=== PATIENT | female | born 1985 | race Caucasian/White ===

== ENCOUNTER → 2016-12-01 | Outpatient (CLI) | payer OTHER ==
[~2016-12-01] MED LIST: CLIN-62 PO; HYDR-3812 PO; IBP600T1 PO; IBUP-1773 PO; OXYC-12 PO; PREN-115 PO; PREN1TAB71 PO; SERT50TA2 PO; [UNRECOGNIZED DRUG - OTHER]
--- NOTE | 2016-12-01 17:12 | Diagnostic Imaging Report ---
PROCEDURE: US OB SINGLE FETUS <14 WKS. TECHNIQUE: Multiple real-time grayscale images were obtained over the gravid uterus in various projections. INDICATION: OB ultrasound for dates. FINDINGS: There is single live intrauterine fetus present. Placenta is developing anteriorly. Placenta does extend into the lower uterine segment and at least appears to represent marginal previa at this time. heart rate of 149 beats per minute. biometric measurements are BPD 2.67 cm, head circumference 9.88 cm, abdominal circumference 8.16 cm, femur length 1.36 cm with estimated weight of 95 g. IMPRESSION: 1. A 14 weeks 4 days live intrauterine by ultrasound. Sonographic EDC of 05/28/2017. 2. Anterior placenta is present which is extending into the lower uterine segment at this time. Followup is indicated. Dictated by: Dictated on workstation # [id number]
== END ==
LOC: RAD 13:51
PROVIDERS: ATTEND Family Medicine
DX: Z34.82 Encounter for supervision of other normal pregnancy, second trimester (principal)
CPT/HCPCS: 76801

== ENCOUNTER → 2017-02-12 | Outpatient (CLI) | payer OTHER ==
[~2017-02-12] MED LIST changes: +FERR-74 PO
--- NOTE | 2017-02-12 12:39 | Diagnostic Imaging Report ---
INDICATION: anatomical survey. TECHNIQUE: Multiple real-time grayscale images were obtained over the gravid uterus. COMPARISON: 12/01/2016. FINDINGS: Transabdominal sonographic evaluation of the gravid uterus was performed. The cervix is closed and measures 5.4 cm. Single live intrauterine at 24 weeks 4 days by today's sonographic measurements. Appropriate interval growth. EDC by the first ultrasound is 05/28/2017. EDC by today's ultrasound is 05/31/2017. heart rate measures 132 beats per minute. presentation is breech. Normal amniotic fluid index. Grade 2 placenta is located anteriorly with no placenta previa. There is good visualization of the kidneys, stomach, bladder, brain, three-vessel cord and insertion, spine, and extremities. The four-chamber heart was not well visualized due to positioning. Recommend short-term sonographic followup. Biometrical measurements are as follows: Biparietal 5.85 cm, age 24 weeks 0 days. Head circumference 22.3 cm, age 24 weeks 3 days. Abdominal circumference 19.63 cm, age 24 weeks 3 days. Femur length 4.55 cm, age 25 weeks 1 days. Sonographic estimate age: 24 weeks 4 days. Sonographic estimated date of delivery: 05/31/2017. Estimated Weight: 711 gm (+/- 104 gm). LMP percentile: 23%. heart rate: 132 beats per minute. number: 1 of 1. IMPRESSION: 1. Single live intrauterine at 24 weeks 4 days by today's sonographic measurements. 2. Poor visualization of the four-chamber heart due to positioning. Recommend short-term sonographic followup. The remainder of the anatomical survey appears within normal limits. Dictated by: Dictated on workstation # [id number]
== END ==
LOC: RAD 11:01
PROVIDERS: ATTEND Family Medicine
DX: Z36 Encounter for antenatal screening of mother (principal); Z3A.24 24 weeks gestation of pregnancy
CPT/HCPCS: 76805

== ENCOUNTER → 2017-03-08 | Outpatient (CLI) | payer OTHER ==
--- NOTE | 2017-03-08 17:32 | Diagnostic Imaging Report ---
INDICATION: Follow-up exam. TECHNIQUE: Multiple real-time grayscale images were obtained over the gravid uterus. COMPARISON: 12/01/2016 and 02/12/2017. FINDINGS: The previous OB ultrasound exam of 02/12/2017 noted a single live fetus of approximately 24 weeks 4 days gestation +/- 1 week. There were no abnormalities identified, but the four-chamber heart view was less than optimal. On this study, the fetus is again identified. The fetus is cephalic in presentation. heart motion is noted with a rate of 149 bpm recorded. The four-chamber heart view is better visualized on this study and appears to be within normal limits. The placenta is anterior and there is no previa. The amniotic fluid volume is within normal limits. The cervix is identified and measures 4.1 cm in length. The growth parameters are not obtained for this study. IMPRESSION: 1. There is a single live fetus of approximately 28 weeks 3 days gestation +/- 1 week. The EDC remains May 28, 2017. 2. The four-chamber heart view is within normal limits. 3. The growth parameters were not obtained for this study. Dictated by: Dictated on workstation # [id number]
== END ==
LOC: RAD 10:20
PROVIDERS: ATTEND Family Medicine
DX: Z36 Encounter for antenatal screening of mother (principal); Z3A.00 Weeks of gestation of pregnancy not specified
CPT/HCPCS: 76816

== ENCOUNTER 2017-05-28 14:07 | Inpatient (IN) | payer OTHER ==
[~2017-05-28] VITALS: Ht 160 cm; Wt 68.3 kg
[2017-05-28] VITALS (11 sets, daily range): BP systolic 111–129; BP diastolic 63–80
[~2017-05-28 14:07] MED LIST changes: -FERR-74 PO
[2017-05-28] MEDS ORDERED: D5 LR IV SOLUTION 1,000 ML IV ONE (14:23)
[2017-05-28] MEDS ORDERED: OXYTOCIN/NORMAL SALINE 500 ML IV ONE (14:44)
[2017-05-28] MEDS ORDERED: LIDOCAINE/EPI 2% 1:200,00 (XYLOCAINE) 10 ML VIAL ONE (14:44)
[2017-05-28] MEDS ORDERED: MINERAL OIL CONCENTRATE 99.9% 15 ML UDC ONE (14:44)
[2017-05-28] MEDS ORDERED: D5 LR IV SOLUTION 1,000 ML IV SCH (15:33)
[2017-05-28 15:40] LABS: BASOPHILS % (AUTO) 0 % (0-10); EOSINOPHILS % (AUTO) 0 % (0-10); LYMPHOCYTES # (AUTO) 1.4 X 10^3 (1.0-4.0); LYMPHOCYTES % (AUTO) 12 % (12-44); MEAN CORPUSCULAR HEMOGLOBIN 24 PG (25-34); MEAN CORPUSCULAR HGB CONC 32 G/DL (32-36); MEAN CORPUSCULAR VOLUME 75 FL (80-99); MEAN PLATELET VOLUME 11.6 FL (7.4-10.4); MONOCYTES # (AUTO) 0.6 X 10^3 (0.0-1.0); MONOCYTES % (AUTO) 5 % (0-12); NEUTROPHILS # (AUTO) 9.2 X 10^3 (1.8-7.8); NEUTROPHILS % (AUTO) 82 % (42-75); PLATELET COUNT 271 10^3/uL (130-400); RED BLOOD COUNT 4.41 10^6/uL (4.35-5.85); RED CELL DISTRIBUTION WIDTH 15.9 % (10.0-14.5); WHITE BLOOD COUNT 11.2 10^3/uL (4.3-11.0)
--- NOTE | 2017-05-28 15:41 | History & Physical-OB ---
OB - Chief Complaint & HPI Date/Time Date of Admission: Date of Admission: May 28, 2017 at 2:57 pm Time Seen by Provider: 14:45 Chief Complaint/History OB-Reason for Admission/Chief: Onset of Labor Hx : 3 Hx Para: 2001 Expected Date of Delivery: May 31, 2017 Gestational Age in Weeks: 39 Gestational Age in Days: 4 History of Labs A+, antibody neg, RI. HepB/RPR/HIV neg. GC/chlamydia neg. 1 hour glucola normal. GBS negative. Allergies and Home Medications Allergies Coded Allergies: No Known Drug Allergies (Unverified , 10/29/11) Home Medications Hydrocodone/Acetaminophen 1 Each Tablet, 1 TAB PO Q4H PRN for PAIN, #30 Ref 0 Prescribed by: SEBASTIAN SOLIZ on 08/12/15 0908 Ibuprofen 600 Mg Tablet, 600 MG PO Q6H PRN for PAIN, #60 Ref 0 Prescribed by: SEBASTIAN SOLIZ on 08/12/15 0908 Vit/Iron Fumarate/FA 1 Each Tablet, 1 EACH PO DAILY, (Reported) Sertraline HCl 50 Mg Tablet, 50 MG PO DAILY, (Reported) OB - History Hx of Present Care: Yes Ultrasounds: Abnormal US findings (initial US with marginal placneta previa, resolved at follow up exam) Obstetrical Complications: Other (anemia on iron BID, proteinuria with no hypertension) Medical Complications: Psychiatric (depression, prescribed sertraline, does not take regularly) Information Induced Hypertension: No Maternal Gestational Diabetes: No Hemorrhage: No Obstetrical History Hx : 3 Hx Para: 2 Hx # Term Pregnancies: 2 Hx # Pregnancies: 0 Number of Living Children: 2 Hx Termination: No Hx Multiple Gestation: No Hx Ectopic : No Hx Stillbirth: No Hx Complication: No Hx Induced Hypertens: No Hx Maternal Gestational Diabet: No Hx Hemorrhage: No Delivery History Hx Dystocia: No Hx Forceps Assisted Delivery: No Hx Vacuum Extraction Assisted: No Hx Placenta Abnormality: No Hx Distress: No Hx Large For Gestational Age I: No Hx Small for Gestational Age I: No Hx Section: No Hx Vaginal Delivery Post C-Sec: No Hx Blood Disorders: No Adverse Rxn to Tranfusion: No Patient Past Medical History PMHx: Major depressive disorder Social History/Family History HIV/AIDS: No Sexually Transmitted Disease: No Alcohol Use: Denies Use Recreational Drug Use: No Smoking Cessation: Never smoker Immunizations Tetanus Booster (TDap): Less than 5yrs (04/18/2017) Date of Influenza Vaccine: Apr 18, 2017 Rubella: immune RPR/VDRL: Negative GBS Status: Negative HBsAG: Negative OB - Admission Exam Physical Exam HEENT: NCAT Abdomen: Gravid Extremities: Edema (mild) Cervical Dilatation: 8cm Effacement: 100% Station: -3 Membranes: Intact Heart Rate: 130's Decelerations: No Decelerations Short Term Variability: Present [employer] Sales Representative Variability: Average (6-25) Contractions on Admission: < 5 Minutes Apart OB - Assessment/Plan/Diagnosis Assessment Assessment: active labor Plan Plan: Expectant Management Copy Copies To 1: SEBASTIAN SOLIZ MD, BETHANY N MD May 28, 2017 3:41 pm
--- NOTE | 2017-05-28 15:44 | OB Labor & Delivery Record ---
Vag Delivery Note Vag Delivery Note Date of Delivery: 05/28/17 Preoperative Diagnosis: Jeni Acharya is a 31 /Para 3 now P3 at 39w4d Postoperative Diagnosis: Same Surgeon: SEBASTIAN SOLIZ Anesthesia: None Delivery Type: spontaneous vaginal delivery Findings: Viable femal , apgars 9/9, weight 8#4 Lacerations: none Intact placenta with 3 vessel cord. No nuchal cord, body cord or shoulder dystocia Estimated Blood Loss: 300 ml Complications: None Condition: Stable Description of Procedure: The patient is a 31 yo G3 now P3 who presented at 8 cm dilation with bulging back, cervix complete nearly immediately after ROM. She was admitted and informed consent was obtained. Her labor course was remarkable for rapid course. She progressed to complete dilatation and began to push. She was then set up for delivery. The infant's head was delivered atraumatically in the occiput anterior position. The shoulders and remainder of the infant's body were then delivered without difficulty. Upon delivery, the was vigorous and placed on maternal abdomen. After a delay, the cord was doubly clamped and cut and the infant was placed skin to skin with mother. An intact placenta with 3-vessel cord delivered via [place] and there was found to be minimal bleeding.~ Vigorous fundal massage was performed and the fundus was found to be firm. IV oxytocin was given. Examination of the vagina and perineum revealed no lacerations. Following the repair, sponge, instrument and needle counts were correct. Mom and baby were both in stable condition in the labor suite. Vitals - Labs Labs Laboratory Tests 05/28/17 14:45: White Blood Count 11.2H, Red Blood Count 4.41, Hemoglobin 10.4L, Hematocrit 33L , Mean Corpuscular Volume 75L, Mean Corpuscular Hemoglobin 24L, Mean Corpuscular Hemoglobin Concent 32, Red Cell Distribution Width 15.9H, Platelet Count 271, Mean Platelet Volume 11.6H, Neutrophils (%) (Auto) 82H, Lymphocytes ( %) (Auto) 12, Monocytes (%) (Auto) 5, Eosinophils (%) (Auto) 0, Basophils (%) ( Auto) 0, Neutrophils # (Auto) 9.2H, Lymphocytes # (Auto) 1.4, Monocytes # (Auto ) 0.6, Eosinophils # (Auto) 0.0, Basophils # (Auto) 0.0 SEBASTIAN SOLIZ MD May 28, 2017 15:43
--- OUTSIDE RECORDS SUMMARY | 2017-05-28 17:36 | XMS REPORT ---
Author Author BOB CHAUDHARY Organization [employer] Address Unknown Phone Unavailable Care Team Providers Care Child Care Education Coordinator Name Role Phone BOB CHAUDHARY CP Unavailable Allergies No Known Allergies Problems Problem Type Condition ICD-9 Code Onset Dates Condition Status Problem Supervision of normal subsequent V22.1 Active Assessment Major depression, recurrent 296.30 Active Problem Depression affecting , antepartum 648.43 Active Assessment Social anxiety disorder 300.23 Active Assessment No condition on [place] II V71.09 Active Medications No Known Medications Procedures Procedure Coding System Code Date Psychotherapy, patient &/family, with E&M, 45 minutes, established patient CPT -4 91325 Mar 24, 2015 Results No Known Results Summary Purpose [employer] Submission
--- OUTSIDE RECORDS SUMMARY | 2017-05-28 17:37 | XMS REPORT ---
Author Author SEBASTIAN SOLIZ [employer] Address Unknown Phone Unavailable Care Team Providers Care Instructor Physical Name Role Phone SEBASTIAN SOLIZ Unavailable Allergies No Known Allergies Problems Problem Type Condition Code Onset Dates Condition Status Problem Depression during in third trimester O99.343 Active Assessment screening for streptococcus B Z36 Active Problem Supervision of normal , third trimester Z34.93 Active Assessment 36 weeks gestation of Z3A.36 Active Medications No Known Medications Procedures Procedure Coding System Code Date DETECT AGNT MULT, DNA, AMPLI CPT-4 68200 Jul 13, 2015 Office Visit, Est Pt., Level 2 CPT-4 68243 Jul 13, 2015 URINE-NO MICRO CPT-4 49970 Jul 13, 2015 Vital Signs Date/Time: Jul 13, 2015 Temperature 97.8 F Weight 150.9 lbs Height 64 in BMI 25.902 Index Blood Pressure Diastolic 70 mmHg Blood Pressure Systolic 115 mmHg Cardiac Monitoring Heart Rate 82 bpm Results Name Result Date Reference Range Unit Abnormality Flag CULTURE, GROUP B STREP (VAGINAL) ----Strep Gp B Culture Negative [id number] Negative Summary Purpose [employer] Submission
--- OUTSIDE RECORDS SUMMARY | 2017-05-28 17:37 | XMS REPORT ---
Author SEBASTIAN Rodriguez [facility] e[employer] Address Unknown Phone Unavailable Care Team Providers Care Research Program Coordinator Name Role Phone SEBASTIAN SOLIZ CP Unavailable Allergies, Adverse Reactions, Alerts Substance Reaction Event Type N.K.D.A. Info Not Available Non Drug Allergy Problems Problem Type Condition Code Onset Dates Condition Status Problem Depression during in third trimester O99.343 Active Assessment Supervision of normal , third trimester Z34.93 Active Problem Supervision of normal , third trimester Z34.93 Active Assessment 30 weeks gestation of Z3A.30 Active Assessment Encounter for immunization Z23 Active Assessment Depression during in third trimester O99.343 Active Medications Medication Code System Code Instructions Start Date End Date Status Dosage Zoloft [facility] [address]-06 50 mg Orally Once a day February 09, 2015 1 tablet Procedures Procedure Coding System Code Date Office Visit, Est Pt., Level 2 CPT-4 90025 Jun 02, 2015 COMPLETE CBC W/AUTO DIFF WBC CPT-4 66600 Jun 02, 2015 URINE-NO MICRO CPT-4 97618 Jun 02, 2015 VENIPUNCT, ROUTINE* CPT-4 42398 Jun 02, 2015 IMMUNIZATION ADMIN, EACH ADD (please include units) CPT-4 60026 Jun 02, 2015 FLUARIX QUAD (3 & UP)-GSK-2014 CPT-4 42271 Jun 02, 2015 GLUCOSE TEST CPT-4 14760 Jun 02, 2015 SINGLE IMMUNIZATION ADMIN CPT-4 84813 Jun 02, 2015 TDAP (BOOSTRIX) CPT-4 15737 Jun 02, 2015 Vital Signs Date/Time: Jun 02, 2015 Temperature 97.9 F Weight 142.7 lbs Height 64 in BMI 24.494 Index Blood Pressure Diastolic 70 mmHg Blood Pressure Systolic 106 mmHg Cardiac Monitoring Heart Rate 80 bpm Results Name Result Date Reference Range Unit Abnormality Flag UA OB DIP (IN HOUSE) GLUCOSE MARS 1 HOUR Immunizations Vaccine Administration Date FLUARIX QUAD (3 & UP)-GSK-2014Jun 02, 2015 TDAP (BOOSTRIX) Jun 02, 2015 Summary Purpose [employer] Submission
--- OUTSIDE RECORDS SUMMARY | 2017-05-28 17:38 | XMS REPORT ---
Author Author SEBASTIAN SOLIZ [facility] e[employer] Address Unknown Phone Unavailable Care Team Providers Care Ios Software Engineer Name Role Phone SEBASTIAN SOLIZ Unavailable Allergies No Known Allergies Problems Problem Type Condition Code Onset Dates Condition Status Problem Depression during in third trimester O99.343 Active Assessment Supervision of normal , third trimester Z34.93 Active Problem Supervision of normal , third trimester Z34.93 Active Assessment Depression during in third trimester O99.343 Active Assessment 34 weeks gestation of Z3A.34 Active Medications No Known Medications Procedures Procedure Coding System Code Date Office Visit, Est Pt., Level 2 CPT-4 77636 Jun 30, 2015 URINE-NO MICRO CPT-4 43326 Jun 30, 2015 Vital Signs Date/Time: Jun 30, 2015 Temperature 97.0 F Weight 148.5 lbs Height 64 in BMI 25.49 Index Blood Pressure Diastolic 70 mmHg Blood Pressure Systolic 116 mmHg Results Name Result Date Reference Range Unit Abnormality Flag UA OB DIP (IN HOUSE) ----Glucose negative 20150630 ----Protein negative [id number] Summary Purpose [employer]ClinicalWorks Submission
--- OUTSIDE RECORDS SUMMARY | 2017-05-28 17:38 | XMS REPORT ---
Author Author SEBASTIAN SOLIZ Organization [facility] Address [address] [place] [address] Care Team Providers Care Mortgage Coordinator Name Role Phone SEBASTIAN SOLIZ Unavailable PROBLEMS Type Condition ICD9-CM Code [id number] Code Onset Dates Condition Status SNOMED Code Problem Anemia affecting in third trimester O99.013 Active 87610958 Problem Concern for personal safety due to history of psychological trauma Z91.49 Active 39063848 Problem Depression F32.9 Active 43645728 Problem Marginal placenta previa O44.20 Resolved [id number] ALLERGIES No Information SOCIAL HISTORY Never Assessed PLAN OF CARE VITAL SIGNS MEDICATIONS Unknown Medications RESULTS No Results PROCEDURES No Known procedures IMMUNIZATIONS No Known Immunizations MEDICAL (GENERAL) HISTORY Type Description Date Medical History Depression Medical History Marginal placenta previa (resolved 02/13/2017) Surgical History cyst removal - lower back x 2 - minimal incision and draining method Hospitalization History childbirth
--- OUTSIDE RECORDS SUMMARY | 2017-05-28 17:38 | XMS REPORT ---
Author SEBASTIAN Rodriguez [facility] e[employer] Address Unknown Phone Unavailable Care Team Providers Care Radiator Core Tester Name Role Phone SEBASTIAN SOLIZ Unavailable Allergies No Known Allergies Problems Problem Type Condition Code Onset Dates Condition Status Problem Depression during in third trimester O99.343 Active Assessment 38 weeks gestation of Z3A.38 Active Problem Supervision of normal , third trimester Z34.93 Active Assessment Supervision of normal , third trimester Z34.93 Active Assessment Proteinuria complicating , third trimester O12.13 Active Medications No Known Medications Procedures Procedure Coding System Code Date LACTATE (LD) (LDH) ENZYME CPT-4 39027 Jul 28, 2015 ASSAY OF BLOOD/URIC ACID CPT-4 72176 Jul 28, 2015 URINE-NO MICRO CPT-4 31524 Jul 28, 2015 VENIPUNCT, ROUTINE* CPT-4 59039 Jul 28, 2015 ASSAY OF URINE CREATININE CPT-4 99372 Jul 28, 2015 COMPREHEN METABOLIC PANEL CPT-4 84002 Jul 28, 2015 Office Visit, Est Pt., Level 3 CPT-4 10784 Jul 28, 2015 COMPLETE CBC W/AUTO DIFF WBC CPT-4 26145 Jul 28, 2015 Vital Signs Date/Time: Jul 28, 2015 Temperature 97.5 F Weight 153.7 lbs Height 64 in BMI 26.383 Index Blood Pressure Diastolic 72 mmHg Blood Pressure Systolic 116 mmHg Cardiac Monitoring Heart Rate 84 bpm Results Name Result Date Reference Range Unit Abnormality Flag UA OB DIP (IN HOUSE) ----Glucose negative [id number] ----Protein 1+ [id number] ROUTINE VENIPUNCTURE Summary Purpose [employer]ClinicalWorks Submission
--- OUTSIDE RECORDS SUMMARY | 2017-05-28 17:38 | XMS REPORT ---
Author SEBASTIAN Rodriguez [employer] Address Unknown Phone Unavailable Care Team Providers Care Business Systems Advisor Name Role Phone SEBASTIAN SOLIZ Unavailable Allergies No Known Allergies Problems Problem Type Condition Code Onset Dates Condition Status Problem Depression during in third trimester O99.343 Active Assessment Supervision of normal , third trimester Z34.93 Active Problem Supervision of normal , third trimester Z34.93 Active Assessment Maternal care for suspected poor growth, third trimester, single gestation O36.5993 Active Assessment 37 weeks gestation of Z3A.37 Active Medications No Known Medications Procedures Procedure Coding System Code Date Office Visit, Est Pt., Level 2 CPT-4 01370 Jul 21, 2015 URINE-NO MICRO CPT-4 45935 Jul 21, 2015 Vital Signs Date/Time: Jul 21, 2015 Temperature 97.8 F Weight 153.8 lbs Height 64 in BMI 26.4 Index Blood Pressure Diastolic 76 mmHg Blood Pressure Systolic 118 mmHg Results Name Result Date Reference Range Unit Abnormality Flag UA OB DIP (IN HOUSE) ----Glucose negative [id number] ----Protein trace [id number] Summary Purpose eClinicalWorks Submission
--- OUTSIDE RECORDS SUMMARY | 2017-05-28 17:38 | XMS REPORT ---
Author Author SEBASTIAN SOLIZ Organization [facility] Address [address] [place] [address] Care Team Providers Care Clean Up Supervisor Name Role Phone SEBASTIAN SOLIZ Unavailable PROBLEMS Type Condition ICD9-CM Code [id number] Code Onset Dates Condition Status SNOMED Code Problem Anemia affecting in third trimester O99.013 Active 26385235 Problem Concern for personal safety due to history of psychological trauma Z91.49 Active 44422775 Problem Depression F32.9 Active 03506968 Problem Marginal placenta previa O44.20 Resolved [id number] ALLERGIES No Information SOCIAL HISTORY Never Assessed [...]
--- OUTSIDE RECORDS SUMMARY | 2017-05-28 17:38 | XMS REPORT ---
Author Author JASON SCHUMACHER Organization [employer] Address Unknown Phone Unavailable Care Team Providers Care Drilling Manager Name Role Phone JASON SCHUMACHER CP Unavailable Allergies, Adverse Reactions, Alerts Substance Reaction Event Type N.K.D.A. Info Not Available Non Drug Allergy Problems Problem Type Condition Code Onset Dates Condition Status Problem Concern for personal safety due to history of psychological trauma Z91.49 Active Problem Supervision of normal , third trimester Z34.93 Active Problem Depression F32.9 Active Assessment Dental caries K02.9 Active Problem Depression during in third trimester O99.343 Active Assessment Dental examination Z01.20 Active Medications Medication Code System Code Instructions Start Date End Date Status Dosage Sertraline HCl [facility] [address]-39 not defined Procedures Procedure Coding System Code Date EXTRAC ERUPTED TOOTH/EXPOSED ROOT CPT-4 D7140 December 22, 2015 INTRAORL-PERIAPICAL 1 FILM 06966 CPT-4 D0220 December 22, 2015 LTD ORAL EVALUATION - PROBLEM FOCUS CPT-4 D0140 December 22, 2015 BITEWING - SINGLE FILM CPT-4 D0270 December 22, 2015 Vital Signs Date/Time: December 22, 2015 Blood Pressure Diastolic 73 mmHg Blood Pressure Systolic 115 mmHg Height 64 in Results No Known Results Summary Purpose [employer]ClinicalWorks Submission
--- OUTSIDE RECORDS SUMMARY | 2017-05-28 17:38 | XMS REPORT ---
Author CHANDLER Paul Organization [employer] Address Unknown Phone Unavailable Care Team Providers Care Industrial Equipment Wirer Name Role Phone CHANDLER AGUILAR CP Unavailable Allergies, Adverse Reactions, Alerts Substance Reaction Event Type N.K.D.A. Info Not Available Non Drug Allergy Problems Problem Type Condition Code Onset Dates Condition Status Problem Concern for personal safety due to history of psychological trauma Z91.49 Active Assessment Congestion of nasal sinus R09.81 Active Problem Depression F32.9 Active Assessment Cough R05 Active Medications Medication Code System Code Instructions Start Date End Date Status Dosage Ortho Micronor [facility] [address]-05 0.35 MG Orally Once a day September 23, 2015 1 tablet Zoloft [facility] [address]-42 100 MG Orally Once a day February 09, 2015 1 tablet Mucinex [facility] [address]-90 600 MG Orally every 12 hrs May 08, 2016 May 18, 2016 1 tablet as needed Procedures Procedure Coding System Code Date Office Visit, Est Pt., Level 3 CPT-4 88695 May 08, 2016 Vital Signs Date/Time: May 08, 2016 Cardiac Monitoring Heart Rate 90 bpm Weight 133 lbs Height 64 in BMI 22.83 Index Blood Pressure Diastolic 70 mmHg Blood Pressure Systolic 104 mmHg Results No Known Results Summary Purpose [employer]ClinicalWorks Submission
--- OUTSIDE RECORDS SUMMARY | 2017-05-28 17:38 | XMS REPORT ---
Author Author BOB CHAUDHARY [facility] e[employer] Address Unknown Phone Unavailable Care Team Providers Care It Technical Architect Name Role Phone BOB CHAUDHARY CP Unavailable Allergies No Known Allergies Problems Problem Type Condition Code Onset Dates Condition Status Problem Depression during in third trimester O99.343 Active Assessment Depression during in third trimester O99.343 Active Problem Supervision of normal , third trimester Z34.93 Active Assessment Major depression F32.9 Active Medications No Known Medications Procedures Procedure Coding System Code Date Psychotherapy, patient &/family, 30 minutes, established patient CPT-4 56336 Jun 02, 2015 Results No Known Results Summary Purpose [employer]ClinicalWorks Submission
--- OUTSIDE RECORDS SUMMARY | 2017-05-28 17:38 | XMS REPORT ---
Author JEFF Kirkland Organization [employer] Address Unknown Phone Unavailable Care Team Providers Care It Network Architect Name Role Phone JEFF NEWBY CP Unavailable Allergies No Known Allergies Problems Problem Type Condition ICD-9 Code Onset Dates Condition Status Problem Supervision of normal subsequent V22.1 Active Assessment Supervision of normal subsequent V22.1 Active Problem Depression affecting , antepartum 648.43 Active Assessment Depression affecting , antepartum 648.43 Active Medications Medication Code System Code Instructions Start Date End Date Status Dosage Zoloft [facility] [address]-06 50 mg Orally Once a day February 09, 2015 1 tablet Procedures Procedure Coding System Code Date ALPHA-FETOPROTEIN, SERUM CPT-4 37371 Mar 15, 2015 INHIBIN A CPT-4 10165 Mar 15, 2015 URINE-NO MICRO CPT-4 03082 Mar 15, 2015 CHORIONIC GONADOTROPIN TEST CPT-4 20193 Mar 15, 2015 ASSAY OF ESTRIOL CPT-4 21341 Mar 15, 2015 VENIPUNCT, ROUTINE* CPT-4 59286 Mar 15, 2015 Office Visit, Est Pt., Level 3 CPT-4 46921 Mar 15, 2015 Vital Signs Date/Time: Mar 15, 2015 Temperature 97.8 F Weight 123.2 lbs Height 64 in BMI 21.147 Index Blood Pressure Diastolic 70 mmHg Blood Pressure Systolic 108 mmHg Cardiac Monitoring Heart Rate 82 bpm Results Name Result Date Reference Range Unit Abnormality Flag UA OB DIP (IN HOUSE) Summary Purpose [employer]ClinicalWorks Submission
--- OUTSIDE RECORDS SUMMARY | 2017-05-28 17:40 | XMS REPORT ---
Author Author SEBASTIAN SOLIZ [employer] Address Unknown Phone Unavailable Care Team Providers Care Tennis Coach Name Role Phone SEBASTIAN SOLIZ CP Unavailable Allergies, Adverse Reactions, Alerts Substance Reaction Event Type N.K.D.A. Info Not Available Non Drug Allergy Problems Problem Type Condition Code Onset Dates Condition Status Problem Concern for personal safety due to history of psychological trauma Z91.49 Active Assessment Depression F32.9 Active Problem Depression F32.9 Active Medications Medication Code System Code Instructions Start Date End Date Status Dosage Zoloft [facility] [address]-05 100 MG Orally Once a day February 09, 2015 1 tablet Ortho Micronor [facility] [address]-52 0.35 MG Orally Once a day September 23, 2015 1 tablet Procedures Procedure Coding System Code Date Office Visit, Est Pt., Level 3 CPT-4 48464 May 02, 2016 Vital Signs Date/Time: May 02, 2016 Cardiac Monitoring Heart Rate 72 bpm Weight 133.5 lbs Height 64 in BMI 22.91 Index Blood Pressure Diastolic 86 mmHg Blood Pressure Systolic 122 mmHg Results No Known Results Summary Purpose eClinicalWorks Submission
--- OUTSIDE RECORDS SUMMARY | 2017-05-28 17:40 | XMS REPORT ---
Author SEBASTIAN Rodriguez [employer] Address Unknown Phone Unavailable Care Team Providers Care Lightout Examiner Name Role Phone SEBASTIAN SOLIZ CP Unavailable Allergies, Adverse Reactions, Alerts Substance Reaction Event Type N.K.D.A. Info Not Available Non Drug Allergy Problems Problem Type Condition Code Onset Dates Condition Status Problem Depression during in third trimester O99.343 Active Assessment Supervision of normal , third trimester Z34.93 Active Problem Supervision of normal , third trimester Z34.93 Active Assessment 32 weeks gestation of Z3A.32 Active Medications Medication Code System Code Instructions Start Date End Date Status Dosage Zoloft [facility] [address]-86 50 mg Orally Once a day February 09, 2015 1 tablet Procedures Procedure Coding System Code Date Office Visit, Est Pt., Level 2 CPT-4 96277 Jun 15, 2015 URINE-NO MICRO CPT-4 16385 Jun 15, 2015 Vital Signs Date/Time: Jun 15, 2015 Temperature 98.5 F Weight 147.8 lbs Height 64 in BMI 25.37 Index Blood Pressure Diastolic 76 mmHg Blood Pressure Systolic 118 mmHg Cardiac Monitoring Heart Rate 84 bpm Results No Known Results Summary Purpose eClinicalWorks Submission
--- OUTSIDE RECORDS SUMMARY | 2017-05-28 17:43 | XMS REPORT | Continuity of Care Document ---
Author Author [facility] Address Unknown Phone Unavailable Allergies Active Description Code Type Severity Reaction Onset Reported/Identified Relationship to Patient Clinical Status Yes No Known Drug Allergies [id number] Drug Allergy Unknown N/ A 10/29/2011 Medications Problems Date Dx Coded Attending Type Code Diagnosis Diagnosed By 09/18/2011 706.2 Sebaceous Cyst 09/18/2011 706.2 Sebaceous Cyst 09/18/2011 706.2 Sebaceous Cyst 09/18/2011 706.2 Sebaceous Cyst 09/18/2011 706.2 Sebaceous Cyst 09/18/2011 706.2 Sebaceous Cyst 09/18/2011 706.2 Sebaceous Cyst 09/18/2011 706.2 Sebaceous Cyst 09/18/2011 706.2 Sebaceous Cyst 09/18/2011 706.2 Sebaceous Cyst 09/18/2011 706.2 Sebaceous Cyst 09/18/2011 706.2 Sebaceous Cyst 09/18/2011 DULCE JUAREZ, ARISTIDES Jenkins 706.2 Sebaceous Cyst 09/18/2011 DULCE JUAREZ, ARISTIDES Jenkins 706.2 Sebaceous Cyst 09/18/2011 DULCE JUAREZ, ARISTIDES Jenkins 706.2 Sebaceous Cyst 09/18/2011 DULCE JUAREZ, ARISTIDES Jenkins 706.2 Sebaceous Cyst 09/18/2011 DULCE JUAREZ, ARISTIDES Jenkins 706.2 Sebaceous Cyst 09/18/2011 DULCE JUAREZ, ARISTIDES Jenkins 706.2 Sebaceous Cyst 09/18/2011 DULCE PHD, ARISTIDES Jenkins 706.2 Sebaceous Cyst 09/18/2011 DULCE JUAREZ, ARISTIDES Jenkins 706.2 Sebaceous Cyst 09/18/2011 ANAID VIZCAINO APRN 706.2 Sebaceous Cyst 09/18/2011 JEFF NEWBY DO 706.2 Sebaceous Cyst 09/18/2011 DULCE JUAREZ, ARISTIDES Jenkins 706.2 Sebaceous Cyst 09/18/2011 ALISHA DIRECTOR OF AUTOMATION, ROSALINE A 706.2 Sebaceous Cyst 09/18/2011 DULCE PHD, ARISTIDES Jenkins 706.2 Sebaceous Cyst 09/18/2011 DULCE PHD, ARISTIDES Jenkins 706.2 Sebaceous Cyst 09/18/2011 YOVANA HAYWOOD, ISMAEL 706.2 Sebaceous Cyst 09/18/2011 SAVITA HERNADEZ APRN 706.2 Sebaceous Cyst 09/18/2011 DULCE PHD, ARISTIDES Jenkins 706.2 Sebaceous Cyst 09/18/2011 SEBASTIAN SOLIZ MD 706.2 Sebaceous Cyst 09/18/2011 DULCE PHD, ARISTIDES Jenkins 706.2 Sebaceous Cyst 09/18/2011 DULCE PHD, ARISTIDES Jenkins 706.2 Sebaceous Cyst 09/18/2011 NEENA DODGEMF, BOB Hamilton 706.2 Sebaceous Cyst 09/18/2011 NEENA LCMF, BOB Hamilton 706.2 Sebaceous Cyst 09/18/2011 NEENAABISAI MICHAUDF, BOB Hamilton 706.2 Sebaceous Cyst 09/18/2011 ROSALINE BRITO APRN 706.2 Sebaceous Cyst 09/18/2011 JEFF NEWBY DO 706.2 Sebaceous Cyst 10/10/2011 616.10 Vaginitis Vulvovaginitis Unspecified 10/10/2011 704.1 HIRSUTISM 10/10/2011 V25.01 Contraception - Oral Contraception 10/10/2011 V74.5 Std Screen 10/10/2011 V76.2 Cervical Cancer Screening (pap Smear) 10/10/2011 616.10 Vaginitis Vulvovaginitis Unspecified 10/10/2011 704.1 HIRSUTISM 10/10/2011 V25.01 Contraception - Oral Contraception 10/10/2011 V74.5 Std Screen 10/10/2011 V76.2 Cervical Cancer Screening (pap Smear) 10/10/2011 616.10 Vaginitis Vulvovaginitis Unspecified 10/10/2011 704.1 HIRSUTISM 10/10/2011 V25.01 Contraception - Oral Contraception 10/10/2011 V74.5 Std Screen 10/10/2011 V76.2 Cervical Cancer Screening (pap Smear) 10/10/2011 616.10 Vaginitis Vulvovaginitis Unspecified 10/10/2011 704.1 HIRSUTISM 10/10/2011 V25.01 Contraception - Oral Contraception 10/10/2011 V74.5 Std Screen 10/10/2011 V76.2 Cervical Cancer Screening (pap Smear) 10/10/2011 616.10 Vaginitis Vulvovaginitis Unspecified 10/10/2011 704.1 HIRSUTISM 10/10/2011 V25.01 Contraception - Oral Contraception 10/10/2011 V74.5 Std Screen 10/10/2011 V76.2 Cervical Cancer Screening (pap Smear) 10/10/2011 616.10 Vaginitis Vulvovaginitis Unspecified 10/10/2011 704.1 HIRSUTISM 10/10/2011 V25.01 Contraception - Oral Contraception 10/10/2011 V74.5 Std Screen 10/10/2011 V76.2 Cervical Cancer Screening (pap Smear) 10/10/2011 616.10 Vaginitis Vulvovaginitis Unspecified 10/10/2011 704.1 HIRSUTISM 10/10/2011 V25.01 Contraception - Oral Contraception 10/10/2011 V74.5 Std Screen 10/10/2011 V76.2 Cervical Cancer Screening (pap Smear) 10/10/2011 616.10 Vaginitis Vulvovaginitis Unspecified 10/10/2011 704.1 HIRSUTISM 10/10/2011 V25.01 Contraception - Oral Contraception 10/10/2011 V74.5 Std Screen 10/10/2011 V76.2 Cervical Cancer Screening (pap Smear) 10/10/2011 616.10 Vaginitis Vulvovaginitis Unspecified 10/10/2011 704.1 HIRSUTISM 10/10/2011 V25.01 Contraception - Oral Contraception 10/10/2011 V74.5 Std Screen 10/10/2011 V76.2 Cervical Cancer Screening (pap Smear) 10/10/2011 616.10 Vaginitis Vulvovaginitis Unspecified 10/10/2011 704.1 HIRSUTISM 10/10/2011 V25.01 Contraception - Oral Contraception 10/10/2011 V74.5 Std Screen 10/10/2011 V76.2 Cervical Cancer Screening (pap Smear) 10/10/2011 616.10 Vaginitis Vulvovaginitis Unspecified 10/10/2011 704.1 HIRSUTISM 10/10/2011 V25.01 Contraception - Oral Contraception 10/10/2011 V74.5 Std Screen 10/10/2011 V76.2 Cervical Cancer Screening (pap Smear) 10/10/2011 616.10 Vaginitis Vulvovaginitis Unspecified 10/10/2011 704.1 HIRSUTISM 10/10/2011 V25.01 Contraception - Oral Contraception 10/10/2011 V74.5 Std Screen 10/10/2011 V76.2 Cervical Cancer Screening (pap Smear) 10/10/2011 ARISTIDES CARDONA PHD 616.10 Vaginitis Vulvovaginitis Unspecified 10/10/2011 ARISTIDES CARDONA PHD 704.1 HIRSUTISM 10/10/2011 ARISTIDES CARDONA PHD V25.01 Contraception - Oral Contraception 10/10/2011 ARISTIDES CARDONA PHD V74.5 Std Screen 10/10/2011 ARISTIDES CARDONA PHD V76.2 Cervical Cancer Screening (pap Smear) 10/10/2011 ARISTIDES CARDONA PHD 616.10 Vaginitis Vulvovaginitis Unspecified 10/10/2011 ARISTIDES CARDONA PHD 704.1 HIRSUTISM 10/10/2011 ARISTIDES CARDONA PHD V25.01 Contraception - Oral Contraception 10/10/2011 ARISTIDES CARDONA PHD V74.5 Std Screen 10/10/2011 ARISTIDES CARDONA PHD V76.2 Cervical Cancer Screening (pap Smear) 10/10/2011 ARISTIDES CARDONA PHD 616.10 Vaginitis Vulvovaginitis Unspecified 10/10/2011 ARISTIDES CARDONA PHD 704.1 HIRSUTISM 10/10/2011 ARISTIDES CARDONA PHD V25.01 Contraception - Oral Contraception 10/10/2011 ARISTIDES CARDONA PHD V74.5 Std Screen 10/10/2011 ARISTIDES CARDONA PHD V76.2 Cervical Cancer Screening (pap Smear) 10/10/2011 ARISTIDES CARDONA PHD 616.10 Vaginitis Vulvovaginitis Unspecified 10/10/2011 ARISTIDES CARDONA PHD 704.1 HIRSUTISM 10/10/2011 ARISTIDES CARDONA PHD V25.01 Contraception - Oral Contraception 10/10/2011 ARISTIDES CARDONA PHD V74.5 Std Screen 10/10/2011 ARISTIDES CARDONA PHD V76.2 Cervical Cancer Screening (pap Smear) 10/10/2011 ARISTIDES CARDONA PHD 616.10 Vaginitis Vulvovaginitis Unspecified 10/10/2011 ARISTIDES CARDONA PHD 704.1 HIRSUTISM 10/10/2011 ARISTIDES CARDONA PHD V25.01 Contraception - Oral Contraception 10/10/2011 ARISTIDES CARDONA PHD V74.5 Std Screen 10/10/2011 ARISTIDES CARDONA PHD V76.2 Cervical Cancer Screening (pap Smear) 10/10/2011 ARISTIDES CARDONA PHD 616.10 Vaginitis Vulvovaginitis Unspecified 10/10/2011 ARISTIDES CARDONA PHD 704.1 HIRSUTISM 10/10/2011 ARISTIDES ACRDONA PHD V25.01 Contraception - Oral Contraception 10/10/2011 ARISTIDES CARDONA PHD V74.5 Std Screen 10/10/2011 ARISTIDES CARDONA PHD V76.2 Cervical Cancer Screening (pap Smear) 10/10/2011 ARISTIDES CARDONA PHD 616.10 Vaginitis Vulvovaginitis Unspecified 10/10/2011 ARISTIDES CARDONA PHD 704.1 HIRSUTISM 10/10/2011 ARISTIDES CARDONA PHD V25.01 Contraception - Oral Contraception 10/10/2011 ARISTIDES CARDONA PHD V74.5 Std Screen 10/10/2011 ARISTIDES CARDONA PHD V76.2 Cervical Cancer Screening (pap Smear) 10/10/2011 ARISTIDES CARDONA PHD 616.10 Vaginitis Vulvovaginitis Unspecified 10/10/2011 ARISTIDES CARDONA PHD 704.1 HIRSUTISM 10/10/2011 ARISTIDES CARDONA PHD V25.01 Contraception - Oral Contraception 10/10/2011 ARISTIDES CARDONA PHD V74.5 Std Screen 10/10/2011 ARISTIDES CARDONA PHD V76.2 Cervical Cancer Screening (pap Smear) 10/10/2011 ANAID VIZCAINO APRN 616.10 Vaginitis Vulvovaginitis Unspecified 10/10/2011 ANAID VIZCAINO APRN 704.1 HIRSUTISM 10/10/2011 ANAID VIZCAINO APRN V25.01 Contraception - Oral Contraception 10/10/2011 ANAID VIZACINO APRN V74.5 Std Screen 10/10/2011 ANAID VIZCAINO APRN V76.2 Cervical Cancer Screening (pap Smear) 10/10/2011 JEFF NEWBY DO 616.10 Vaginitis Vulvovaginitis Unspecified 10/10/2011 JEFF NEWBY DO 704.1 HIRSUTISM 10/10/2011 NEWBY JEFF SNEED V25.01 Contraception - Oral Contraception 10/10/2011 JEFF NEWBY DO V74.5 Std Screen 10/10/2011 JEFF NEWBY DO V76.2 Cervical Cancer Screening (pap Smear) 10/10/2011 ARISTIDES CARDONA PHD 616.10 Vaginitis Vulvovaginitis Unspecified 10/10/2011 ARISTIDES CARDONA PHD 704.1 HIRSUTISM 10/10/2011 ARISTIDES CARDONA PHD V25.01 Contraception - Oral Contraception 10/10/2011 ARISTIDES CARDONA PHD V74.5 Std Screen 10/10/2011 ARISTIDES CARDONA PHD V76.2 Cervical Cancer Screening (pap Smear) 10/10/2011 ROSALINE BRITO APRN 616.10 Vaginitis Vulvovaginitis Unspecified 10/10/2011 ROSALINE BRITO APRN 704.1 HIRSUTISM 10/10/2011 ROSALINE BRITO APRN V25.01 Contraception - Oral Contraception 10/10/2011 ROSALINE BRITO APRN A V74.5 Std Screen 10/10/2011 ROSALINE BRITO APRN V76.2 Cervical Cancer Screening (pap Smear) 10/10/2011 ARISTIDES CARDONA PHD 616.10 Vaginitis Vulvovaginitis Unspecified 10/10/2011 ARISTIDES CARDONA PHD 704.1 HIRSUTISM 10/10/2011 ARISTIDES CARDONA PHD V25.01 Contraception - Oral Contraception 10/10/2011 ARISTIDES CARDONA PHD V74.5 Std Screen 10/10/2011 ARISTIDES CARDONA PHD V76.2 Cervical Cancer Screening (pap Smear) 10/10/2011 ARISTIDES CARDONA PHD 616.10 Vaginitis Vulvovaginitis Unspecified 10/10/2011 ARISTIDES CARDONA PHD 704.1 HIRSUTISM 10/10/2011 DULCE JUAREZ, ARISTIDES Jenkins V25.01 Contraception - Oral Contraception 10/10/2011 ARISTIDES CARDONA PHD V74.5 Std Screen 10/10/2011 ARISTIDES CARDONA PHD V76.2 Cervical Cancer Screening (pap Smear) 10/10/2011 ISMAEL YEN MD 616.10 Vaginitis Vulvovaginitis Unspecified 10/10/2011 ISMAEL YEN MD 704.1 HIRSUTISM 10/10/2011 ISMAEL YEN MD V25.01 Contraception - Oral Contraception 10/10/2011 ISMAEL YEN MD V74.5 Std Screen 10/10/2011 ISMAEL YEN MD V76.2 Cervical Cancer Screening (pap Smear) 10/10/2011 SAVITA HERNADEZ APRN R 616.10 Vaginitis Vulvovaginitis Unspecified 10/10/2011 SAVITA HERNADEZ APRN R 704.1 HIRSUTISM 10/10/2011 SAVITA HERNADEZ APRN R V25.01 Contraception - Oral Contraception 10/10/2011 JOSE HERNADEZ APRNIA R V74.5 Std Screen 10/10/2011 SAVITA HERNADEZ APRN R V76.2 Cervical Cancer Screening (pap Smear ) 10/10/2011 ARISTIDES CARDONA PHD 616.10 Vaginitis Vulvovaginitis Unspecified 10/10/2011 ARISTIDES CARDONA PHD 704.1 HIRSUTISM 10/10/2011 ARISTIDES CARDNOA PHD V25.01 Contraception - Oral Contraception 10/10/2011 ARISTIDES CARDONA PHD V74.5 Std Screen 10/10/2011 ARISTIDES CARDONA PHD V76.2 Cervical Cancer Screening (pap Smear) 10/10/2011 SEBASTIAN SOLIZ MD 616.10 Vaginitis Vulvovaginitis Unspecified 10/10/2011 SEBASTIAN SOLIZ MD 704.1 HIRSUTISM 10/10/2011 SEBASTIAN SOLIZ MD V25.01 Contraception - Oral Contraception 10/10/2011 SEBASTIAN SOLIZ MD V74.5 Std Screen 10/10/2011 SEBASTIAN SOLIZ MD V76.2 Cervical Cancer Screening (pap Smear) 10/10/2011 ARISTIDES CARDONA PHD 616.10 Vaginitis Vulvovaginitis Unspecified 10/10/2011 DULCE PHD, ARISTIDES Jenkins 704.1 HIRSUTISM 10/10/2011 DULCE JUAREZ, ARISTIDES Jenkins V25.01 Contraception - Oral Contraception 10/10/2011 DULCE JUAREZ, ARISTIDES Jenkins V74.5 Std Screen 10/10/2011 ARISTIDES CARDONA PHD V76.2 Cervical Cancer Screening (pap Smear) 10/10/2011 ARISTIDES CARDONA PHD 616.10 Vaginitis Vulvovaginitis Unspecified 10/10/2011 DULCE JUAREZ, ARISTIDES Jenkins 704.1 HIRSUTISM 10/10/2011 DULCE JUAREZ, ARISTIDES Jenkins V25.01 Contraception - Oral Contraception 10/10/2011 DULCE JUAREZ, ARISTIDES Jenkins V74.5 Std Screen 10/10/2011 ARISTIDES CARDONA PHD V76.2 Cervical Cancer Screening (pap Smear) 10/10/2011 NEENA FRANCE, BOB Hamilton 616.10 Vaginitis Vulvovaginitis Unspecified 10/10/2011 NEENA FRANCE, BOB Hamilton 704.1 HIRSUTISM 10/10/2011 NEENA FRANCE, BOB Hamilton V25.01 Contraception - Oral Contraception 10/10/2011 NEENA FRANCE, BOB Hamilton V74.5 Std Screen 10/10/2011 NEENA FRANCE, BOB Hamilton V76.2 Cervical Cancer Screening (pap Smear) 10/10/2011 NEENA FRANCE, BOB Hamilton 616.10 Vaginitis Vulvovaginitis Unspecified 10/10/2011 NEENA FRANCE, BOB Hamilton 704.1 HIRSUTISM 10/10/2011 NEENA MICHAUDF, BOB Hamilton V25.01 Contraception - Oral Contraception 10/10/2011 NEENA MICHAUDF, BOB Hamilton V74.5 Std Screen 10/10/2011 NEENA FRANCE, BOB Hamilton V76.2 Cervical Cancer Screening (pap Smear) 10/10/2011 NEENA FRANCE, BOB Hamilton 616.10 Vaginitis Vulvovaginitis Unspecified 10/10/2011 NEENA FRANCE, BOB Hamilton 704.1 HIRSUTISM 10/10/2011 BOB ARMANDO V25.01 Contraception - Oral Contraception 10/10/2011 BOB ARMANDO V74.5 Std Screen 10/10/2011 BOB ARMANDO V76.2 Cervical Cancer Screening (pap Smear) 10/10/2011 ALISHA SANTIAGOROSALINE A 616.10 Vaginitis Vulvovaginitis Unspecified 10/10/2011 ALISHA TINOCOROSALINE Berg A 704.1 HIRSUTISM 10/10/2011 ALISHA TINOCOROSALINE Berg A V25.01 Contraception - Oral Contraception 10/10/2011 ALISHA TINOCOROSALINE Berg A V74.5 Std Screen 10/10/2011 ALISHA TINOCOROSALINE Berg A V76.2 Cervical Cancer Screening (pap Smear) 10/10/2011 JEFF NEWBY DO 616.10 Vaginitis Vulvovaginitis Unspecified 10/10/2011 JEFF NEWBY DO 704.1 HIRSUTISM 10/10/2011 JEFF NEWBY DO V25.01 Contraception - Oral Contraception 10/10/2011 JEFF NEWBY DO V74.5 Std Screen 10/10/2011 JEFF NEWBY DO V76.2 Cervical Cancer Screening (pap Smear) 10/20/2011 V58.32 Suture Removal 10/20/2011 V58.32 Suture Removal 10/20/2011 V58.32 Suture Removal 10/20/2011 V58.32 Suture Removal 10/20/2011 V58.32 Suture Removal 10/20/2011 V58.32 Suture Removal 10/20/2011 V58.32 Suture Removal 10/20/2011 V58.32 Suture Removal 10/20/2011 V58.32 Suture Removal 10/20/2011 V58.32 Suture Removal 10/20/2011 V58.32 Suture Removal 10/20/2011 V58.32 Suture Removal 10/20/2011 DULCE PHD, ARISTIDES Jenkins V58.32 Suture Removal 10/20/2011 DULCE PHD, ARISTIDES Jenkins V58.32 Suture Removal 10/20/2011 DULCE PHD, ARISTIDES Jenkins V58.32 Suture Removal 10/20/2011 DULCE PHD, ARISTIDES Jenkins V58.32 Suture Removal 10/20/2011 DULCE PHD, ARISTIDES Jenkins V58.32 Suture Removal 10/20/2011 DULCE JUAREZ, ARISTIDES Jenkins V58.32 Suture Removal 10/20/2011 DULCE JUAREZ, ARISTIDES Jenkins V58.32 Suture Removal 10/20/2011 DULCE JUAREZ, ARISTIDES Jenkins V58.32 Suture Removal 10/20/2011 ANAID VIZCAINO APRN V58.32 Suture Removal 10/20/2011 JEFF NEWBY DO V58.32 Suture Removal 10/20/2011 DULCE JUAREZ, ARISTIDES Jenkins V58.32 Suture Removal 10/20/2011 ROSALINE BRITO APRN V58.32 Suture Removal 10/20/2011 DULCE JUAREZ, ARISTIDES Jenkins V58.32 Suture Removal 10/20/2011 DULCE JUAREZ, ARISTIDES Jenkins V58.32 Suture Removal 10/20/2011 YOVANA HAYWOOD, ISMAEL V58.32 Suture Removal 10/20/2011 SAVITA HERNADEZ APRN V58.32 Suture Removal 10/20/2011 DULCE PHD, ARISTIDES Jenkins V58.32 Suture Removal 10/20/2011 MARTÍNEZ HAYWOOD, SEBASTIAN Berg V58.32 Suture Removal 10/20/2011 DULCE JUAREZ, ARISTIDES Jenkins V58.32 Suture Removal 10/20/2011 DULCE PHD, ARISTIDES Jenkins V58.32 Suture Removal 10/20/2011 NEENA DODGEMF, BOB W V58.32 Suture Removal 10/20/2011 NEENA LCMF, BOB W V58.32 Suture Removal 10/20/2011 NEENA DODGEMF, BOB W V58.32 Suture Removal 10/20/2011 ROSALINE BRITO APRN V58.32 Suture Removal 10/20/2011 JEFF NEWBY DO V58.32 Suture Removal 10/30/2011 Ot 646.83 10/30/2011 Ot 998.59 11/02/2011 876.0 Open Wound Of Back Without Complication 11/02/2011 V22.2 Incidental 11/02/2011 V58.30 Encounter For Change Or Removal Of Nonsurgical Wound Dressing 11/02/2011 876.0 Open Wound Of Back Without Complication 11/02/2011 V22.2 Incidental 11/02/2011 V58.30 Encounter For Change Or Removal Of Nonsurgical Wound Dressing 11/02/2011 876.0 Open Wound Of Back Without Complication 11/02/2011 V22.2 Incidental 11/02/2011 V58.30 Encounter For Change Or Removal Of Nonsurgical Wound Dressing 11/02/2011 876.0 Open Wound Of Back Without Complication 11/02/2011 V22.2 Incidental 11/02/2011 V58.30 Encounter For Change Or Removal Of Nonsurgical Wound Dressing 11/02/2011 876.0 Open Wound Of Back Without Complication 11/02/2011 V22.2 Incidental 11/02/2011 V58.30 Encounter For Change Or Removal Of Nonsurgical Wound Dressing 11/02/2011 876.0 Open Wound Of Back Without Complication 11/02/2011 V22.2 Incidental 11/02/2011 V58.30 Encounter For Change Or Removal Of Nonsurgical Wound Dressing 11/02/2011 876.0 Open Wound Of Back Without Complication 11/02/2011 V22.2 Incidental 11/02/2011 V58.30 Encounter For Change Or Removal Of Nonsurgical Wound Dressing 11/02/2011 876.0 Open Wound Of Back Without Complication 11/02/2011 V22.2 Incidental 11/02/2011 V58.30 Encounter For Change Or Removal Of Nonsurgical Wound Dressing 11/02/2011 876.0 Open Wound Of Back Without Complication 11/02/2011 V22.2 Incidental 11/02/2011 V58.30 Encounter For Change Or Removal Of Nonsurgical Wound Dressing 11/02/2011 876.0 Open Wound Of Back Without Complication 11/02/2011 V22.2 Incidental 11/02/2011 V58.30 Encounter For Change Or Removal Of Nonsurgical Wound Dressing 11/02/2011 876.0 Open Wound Of Back Without Complication 11/02/2011 V22.2 Incidental 11/02/2011 V58.30 Encounter For Change Or Removal Of Nonsurgical Wound Dressing 11/02/2011 876.0 Open Wound Of Back Without Complication 11/02/2011 V22.2 Incidental 11/02/2011 V58.30 Encounter For Change Or Removal Of Nonsurgical Wound Dressing 11/02/2011 ARISTIDES CARDONA PHD 876.0 Open Wound Of Back Without Complication 11/02/2011 ARISTIDES CARDONA PHD V22.2 Incidental 11/02/2011 ARISTIDES CARDONA PHD V58.30 Encounter For Change Or Removal Of Nonsurgical Wound Dressing 11/02/2011 ARISTIDES CARDONA PHD 876.0 Open Wound Of Back Without Complication 11/02/2011 ARISTIDES CARDONA PHD V22.2 Incidental 11/02/2011 ARISTIDES CARDONA PHD V58.30 Encounter For Change Or Removal Of Nonsurgical Wound Dressing 11/02/2011 ARISTIDES CARDONA PHD 876.0 Open Wound Of Back Without Complication 11/02/2011 ARISTIDES CARDONA PHD V22.2 Incidental 11/02/2011 ARISTIDES CARDONA PHD V58.30 Encounter For Change Or Removal Of Nonsurgical Wound Dressing 11/02/2011 ARISTIDES CARDONA PHD 876.0 Open Wound Of Back Without Complication 11/02/2011 ARISTIDES CARDONA PHD V22.2 Incidental 11/02/2011 ARISTIDES CARDONA PHD V58.30 Encounter For Change Or Removal Of Nonsurgical Wound Dressing 11/02/2011 ARISTIDES CARDONA PHD 876.0 Open Wound Of Back Without Complication 11/02/2011 ARISTIDES CARDONA PHD V22.2 Incidental 11/02/2011 ARISTIDES CARDONA PHD V58.30 Encounter For Change Or Removal Of Nonsurgical Wound Dressing 11/02/2011 ARISTIDES CARDONA PHD 876.0 Open Wound Of Back Without Complication 11/02/2011 ARISTIDES CARDONA PHD V22.2 Incidental 11/02/2011 ARISTIDES CARDONA PHD V58.30 Encounter For Change Or Removal Of Nonsurgical Wound Dressing 11/02/2011 ARISTIDES CARDONA PHD 876.0 Open Wound Of Back Without Complication 11/02/2011 ARISTIDES CARDONA PHD V22.2 Incidental 11/02/2011 ARISTIDES CARDONA PHD V58.30 Encounter For Change Or Removal Of Nonsurgical Wound Dressing 11/02/2011 ARISTIDES CARDONA PHD 876.0 Open Wound Of Back Without Complication 11/02/2011 ARISTIDES CARDONA PHD V22.2 Incidental 11/02/2011 ARISTIDES CARDONA PHD V58.30 Encounter For Change Or Removal Of Nonsurgical Wound Dressing 11/02/2011 ANAID VIZCAINO APRN 876.0 Open Wound Of Back Without Complication 11/02/2011 ANAID VIZCAINO APRN V22.2 Incidental 11/02/2011 ANAID VIZCAINO APRN V58.30 Encounter For Change Or Removal Of Nonsurgical Wound Dressing 11/02/2011 NEWBY DO, JEFF K 876.0 Open Wound Of Back Without Complication 11/02/2011 NEWBY DO, JEFF K V22.2 Incidental 11/02/2011 NEWBY DO, JEFF K V58.30 Encounter For Change Or Removal Of Nonsurgical Wound Dressing 11/02/2011 ARISTIDES CARDONA PHD 876.0 Open Wound Of Back Without Complication 11/02/2011 ARISTIDES CARDONA PHD V22.2 Incidental 11/02/2011 ARISTIDES CARDONA PHD V58.30 Encounter For Change Or Removal Of Nonsurgical Wound Dressing 11/02/2011 ALISHAROSALINE Berg APRN A 876.0 Open Wound Of Back Without Complication 11/02/2011 ALISHAMICKY Berg APRNIDI A V22.2 Incidental 11/02/2011 ROSALINE BRITO APRN A V58.30 Encounter For Change Or Removal Of Nonsurgical Wound Dressing 11/02/2011 ARISTIDES CARDONA PHD 876.0 Open Wound Of Back Without Complication 11/02/2011 ARISTIDES CARDONA PHD V22.2 Incidental 11/02/2011 ARISTIDES CARDONA PHD V58.30 Encounter For Change Or Removal Of Nonsurgical Wound Dressing 11/02/2011 ARISTIDES CARDONA PHD 876.0 Open Wound Of Back Without Complication 11/02/2011 ARISTIDES CARDONA PHD V22.2 Incidental 11/02/2011 ARISTIDES CARDONA PHD V58.30 Encounter For Change Or Removal Of Nonsurgical Wound Dressing 11/02/2011 ISMAEL YEN MD 876.0 Open Wound Of Back Without Complication 11/02/2011 ISMAEL YEN MD V22.2 Incidental 11/02/2011 ISMAEL YEN MD V58.30 Encounter For Change Or Removal Of Nonsurgical Wound Dressing 11/02/2011 SAVITA HERNADEZ APRN R 876.0 Open Wound Of Back Without Complication 11/02/2011 SAVITA HERNADEZ APRN R V22.2 Incidental 11/02/2011 SAVITA HERNADEZ APRN R V58.30 Encounter For Change Or Removal Of Nonsurgical Wound Dressing 11/02/2011 ARISTIDES CARDONA PHD 876.0 Open Wound Of Back Without Complication 11/02/2011 ARISTIDES CARDONA PHD V22.2 Incidental 11/02/2011 ARISTIDES CARDONA PHD V58.30 Encounter For Change Or Removal Of Nonsurgical Wound Dressing 11/02/2011 SEBASTIAN SOLIZ MD N 876.0 Open Wound Of Back Without Complication 11/02/2011 SEBASTIAN SOLIZ MD N V22.2 Incidental 11/02/2011 SEBASTIAN SOLIZ MD V58.30 Encounter For Change Or Removal Of Nonsurgical Wound Dressing 11/02/2011 ARISTIDES CARDONA PHD 876.0 Open Wound Of Back Without Complication 11/02/2011 ARISTIDES CARDONA PHD V22.2 Incidental 11/02/2011 ARISTIDES CARDONA PHD V58.30 Encounter For Change Or Removal Of Nonsurgical Wound Dressing 11/02/2011 ARISTIDES CARDONA PHD 876.0 Open Wound Of Back Without Complication 11/02/2011 ARISTIDES CARDONA PHD V22.2 Incidental 11/02/2011 ARISTIDES CARDONA PHD V58.30 Encounter For Change Or Removal Of Nonsurgical Wound Dressing 11/02/2011 NEENA LCMF, BOB W 876.0 Open Wound Of Back Without Complication 11/02/2011 NEENA LCMF, BOB W V22.2 Incidental 11/02/2011 NEENA LCMF, BOB W V58.30 Encounter For Change Or Removal Of Nonsurgical Wound Dressing 11/02/2011 NEENA LCMF, BOB W 876.0 Open Wound Of Back Without Complication 11/02/2011 NEENA LCMF, BOB W V22.2 Incidental 11/02/2011 NEENA LCMF, BOB W V58.30 Encounter For Change Or Removal Of Nonsurgical Wound Dressing 11/02/2011 NEENA LCMF, BOB W 876.0 Open Wound Of Back Without Complication 11/02/2011 NEENA LCMF, BOB W V22.2 Incidental 11/02/2011 NEENA LCMF, BOB W V58.30 Encounter For Change Or Removal Of Nonsurgical Wound Dressing 11/02/2011 ROSALINE BRITO APRN 876.0 Open Wound Of Back Without Complication 11/02/2011 ROSALINE BRITO APRN A V22.2 Incidental 11/02/2011 ROSALINE BRITO APRN A V58.30 Encounter For Change Or Removal Of Nonsurgical Wound Dressing 11/02/2011 JEFF NEWBY DO K 876.0 Open Wound Of Back Without Complication 11/02/2011 JEFF NEWBY DO K V22.2 Incidental 11/02/2011 JEFF NEWBY DO V58.30 Encounter For Change Or Removal Of Nonsurgical Wound Dressing 11/15/2011 V22.0 , NORMAL FIRST 11/15/2011 V22.0 , Normal First 11/15/2011 V22.0 , Normal First 11/15/2011 V22.0 , Normal First 11/15/2011 V22.0 , Normal First 11/15/2011 V22.0 , Normal First 11/15/2011 V22.0 , Normal First 11/15/2011 V22.0 , Normal First 11/15/2011 V22.0 , Normal First 11/15/2011 V22.0 , Normal First 11/15/2011 V22.0 , Normal First 11/15/2011 V22.0 , Normal First 11/15/2011 ARISTIDES CARDONA PHD V22.0 , Normal First 11/15/2011 ARISTIDES CARDONA PHD V22.0 , Normal First 11/15/2011 ARISTIDES CARDONA PHD V22.0 , Normal First 11/15/2011 ARISTIDES CARDONA PHD V22.0 , Normal First 11/15/2011 ARISTIDES CARDONA PHD V22.0 , Normal First 11/15/2011 ARISTIDES CARDONA PHD V22.0 , Normal First 11/15/2011 ARISTIDES CARDONA PHD V22.0 , Normal First 11/15/2011 ARISTIDES CARDONA PHD V22.0 , Normal First 11/15/2011 ANAID VIZCAINO APRN V22.0 , Normal First 11/15/2011 KEYONNA SNEEDJEFF V22.0 , Normal First 11/15/2011 ARISTIDES CARDONA PHD V22.0 , Normal First 11/15/2011 ROSALINE BRITO APRN V22.0 , Normal First 11/15/2011 ARISTIDES CARDONA PHD V22.0 , Normal First 11/15/2011 ARISTIDES CARDONA PHD V22.0 , Normal First 11/15/2011 ISMAEL YEN MD V22.0 , Normal First 11/15/2011 MARICARMEN SANTIAGO, SAVITA Ribera V22.0 , Normal First 11/15/2011 DULCE PHD, ARISTIDES Jenkins V22.0 , Normal First 11/15/2011 MARTÍNEZ HAYWOOD, SEBASTIAN Berg V22.0 , Normal First 11/15/2011 DULCE PHD, ARISTIDES Jenkins V22.0 , Normal First 11/15/2011 DULCE PHD, ARISTIDES Jenkins V22.0 , Normal First 11/15/2011 NEENA LCMF, BOB W V22.0 , Normal First 11/15/2011 NEENA LCMF, BOB W V22.0 , Normal First 11/15/2011 NEENA LCMF, BOB W V22.0 , Normal First 11/15/2011 ALISHA SANTIAGO, ROSALINE Dailey V22.0 , Normal First 11/15/2011 KEYONNA SNEED, JEFF Zeng V22.0 , NORMAL FIRST 11/20/2011 465.9 Upper Respiratory Infection 11/20/2011 465.9 Upper Respiratory Infection 11/20/2011 465.9 Upper Respiratory Infection 11/20/2011 465.9 Upper Respiratory Infection 11/20/2011 465.9 Upper Respiratory Infection 11/20/2011 465.9 Upper Respiratory Infection 11/20/2011 465.9 Upper Respiratory Infection 11/20/2011 465.9 Upper Respiratory Infection 11/20/2011 465.9 Upper Respiratory Infection 11/20/2011 465.9 Upper Respiratory Infection 11/20/2011 465.9 Upper Respiratory Infection 11/20/2011 465.9 Upper Respiratory Infection 11/20/2011 DULCE JUAREZ, ARISTIDES Jenkins 465.9 Upper Respiratory Infection 11/20/2011 DULCE PHD, ARISTIDES Jenkins 465.9 Upper Respiratory Infection 11/20/2011 DULCE JUAREZ, ARISTIDES Jenkins 465.9 Upper Respiratory Infection 11/20/2011 DULCE JUAREZ, ARISTIDES Jenkins 465.9 Upper Respiratory Infection 11/20/2011 DULCE JUAREZ, ARISTIDES Jenkins 465.9 Upper Respiratory Infection 11/20/2011 DULCE JUAREZ, ARISTIDES Jenkins 465.9 Upper Respiratory Infection 11/20/2011 DULCE JUAREZ, ARISTIDES Jenkins 465.9 Upper Respiratory Infection 11/20/2011 DULCE JUAREZ, ARISTIDES Jenkins 465.9 Upper Respiratory Infection 11/20/2011 ANAID VIZCAINO APRN 465.9 Upper Respiratory Infection 11/20/2011 JEFF NEWBY DO K 465.9 Upper Respiratory Infection 11/20/2011 DULCE PHD, ARISTIDES Jenkins 465.9 Upper Respiratory Infection 11/20/2011 ALISHA DIRECTOR OF AUTOMATION, ROSALINE A 465.9 Upper Respiratory Infection 11/20/2011 DULCE JUAREZ, ARISTIDES Jenkins 465.9 Upper Respiratory Infection 11/20/2011 DULCE JUAREZ, ARISTIDES Jenkins 465.9 Upper Respiratory Infection 11/20/2011 ISMAEL YEN MD 465.9 Upper Respiratory Infection 11/20/2011 SAVITA HERNADEZ APRN 465.9 Upper Respiratory Infection 11/20/2011 DULCE JUAREZ, ARISTIDES Jenkins 465.9 Upper Respiratory Infection 11/20/2011 MARTÍNEZ HAYWOOD, SEBASTIAN Berg 465.9 Upper Respiratory Infection 11/20/2011 DULCE JUAREZ, ARISTIDES Jenkins 465.9 Upper Respiratory Infection 11/20/2011 DULCE JUAREZ, ARISTIDES Jenkins 465.9 Upper Respiratory Infection 11/20/2011 NEENA LCMF, BOB W 465.9 Upper Respiratory Infection 11/20/2011 NEENA LCMF, BOB W 465.9 Upper Respiratory Infection 11/20/2011 NEENA LCMF, BOB W 465.9 Upper Respiratory Infection 11/20/2011 ALISHA SANTIAGO, ROSALINE A 465.9 Upper Respiratory Infection 11/20/2011 JEFF NEWBY DO K 465.9 Upper Respiratory Infection 04/24/2012 V04.81 FLU SHOT 04/24/2012 V04.81 Flu Shot 04/24/2012 V04.81 Flu Shot 04/24/2012 V04.81 Flu Shot 04/24/2012 V04.81 Flu Shot 04/24/2012 V04.81 Flu Shot 04/24/2012 V04.81 Flu Shot 04/24/2012 V04.81 Flu Shot 04/24/2012 V04.81 Flu Shot 04/24/2012 V04.81 Flu Shot 04/24/2012 V04.81 Flu Shot 04/24/2012 V04.81 Flu Shot 04/24/2012 DULCE JUAREZ, ARISTIDES Jenkins V04.81 Flu Shot 04/24/2012 DULCE JUAREZ, ARISTIDES Jenkins V04.81 Flu Shot 04/24/2012 DULCE JUAREZ, ARISTIDES Jenkins V04.81 Flu Shot 04/24/2012 DULCE JUAREZ, ARISTIDES Jenkins V04.81 Flu Shot 04/24/2012 DULCE JUAREZ, ARISTIDES Jenkins V04.81 Flu Shot 04/24/2012 DULCE PHD, ARISTIDES Jenkins V04.81 Flu Shot 04/24/2012 DULCE PHD, ARISTIDES Jenkins V04.81 Flu Shot 04/24/2012 DULCE PHD, ARISTIDES Jenkins V04.81 Flu Shot 04/24/2012 CARRILLO SANTIAGO, ANAID Saldaña V04.81 Flu Shot 04/24/2012 JEFF NEWBY DO V04.81 Flu Shot 04/24/2012 DULCE PHD, ARISTIDES Jenkins V04.81 Flu Shot 04/24/2012 ALISHA SANTIAGO, ROSALINE A V04.81 Flu Shot 04/24/2012 DULCE PHD, ARISTIDES Jenkins V04.81 Flu Shot 04/24/2012 DULCE PHD, ARISTIDES Jenkins V04.81 Flu Shot 04/24/2012 YOVANA HAYWOOD, ISMAEL V04.81 Flu Shot 04/24/2012 MARICARMEN SANTIAGO, SAVITA Ribera V04.81 Flu Shot 04/24/2012 DULCE PHD, ARISTIDES Jenkins V04.81 Flu Shot 04/24/2012 MARTÍNEZ HAYWOOD, SEBASTIAN Berg V04.81 Flu Shot 04/24/2012 DULCE PHD, ARISTIDES Jenkins V04.81 Flu Shot 04/24/2012 DULCE PHD, ARISTIDES Jenkins V04.81 Flu Shot 04/24/2012 NEENA LCMF, BOB W V04.81 Flu Shot 04/24/2012 NEENA LCMF, BOB W V04.81 Flu Shot 04/24/2012 NEENA LCMF, BOB W V04.81 Flu Shot 04/24/2012 ALISHA SANTIAGO, ROSALINE A V04.81 Flu Shot 04/24/2012 KEYONNA SNEED, JEFF Zeng V04.81 FLU SHOT 06/27/2012 Ot 663.31 06/27/2012 Ot 664.01 06/27/2012 Ot V06.1 06/27/2012 Ot V27.0 08/07/2012 V24.2 F/U, ROUTINE 08/07/2012 V25.01 CONTRACEPTION - ORAL CONTRACEPTION 08/07/2012 V24.2 F/U, ROUTINE 08/07/2012 V25.01 CONTRACEPTION - ORAL CONTRACEPTION 08/07/2012 V24.2 F/U, ROUTINE 08/07/2012 V25.01 CONTRACEPTION - ORAL CONTRACEPTION 08/07/2012 V24.2 F/U, ROUTINE 08/07/2012 V25.01 CONTRACEPTION - ORAL CONTRACEPTION 08/07/2012 V24.2 F/U, ROUTINE 08/07/2012 V25.01 CONTRACEPTION - ORAL CONTRACEPTION 08/07/2012 V24.2 F/U, ROUTINE 08/07/2012 V25.01 CONTRACEPTION - ORAL CONTRACEPTION 08/07/2012 V24.2 F/U, ROUTINE 08/07/2012 V25.01 CONTRACEPTION - ORAL CONTRACEPTION 08/07/2012 V24.2 F/U, ROUTINE 08/07/2012 V25.01 CONTRACEPTION - ORAL CONTRACEPTION 08/07/2012 V24.2 F/U, ROUTINE 08/07/2012 V25.01 CONTRACEPTION - ORAL CONTRACEPTION 08/07/2012 V24.2 F/U, ROUTINE 08/07/2012 V25.01 CONTRACEPTION - ORAL CONTRACEPTION 08/07/2012 V24.2 F/U, ROUTINE 08/07/2012 V25.01 CONTRACEPTION - ORAL CONTRACEPTION 08/07/2012 ARISTIDES CARDONA PHD V24.2 F/U, ROUTINE 08/07/2012 ARISTIDES CARDONA PHD V25.01 CONTRACEPTION - ORAL CONTRACEPTION 08/07/2012 ARISTIDES CARDONA PHD V24.2 F/U, ROUTINE 08/07/2012 ARISTIDES CARDONA PHD V25.01 CONTRACEPTION - ORAL CONTRACEPTION 08/07/2012 ARISTIDES CARDONA PHD V24.2 F/U, ROUTINE 08/07/2012 ARISTIDES CARDONA PHD V25.01 CONTRACEPTION - ORAL CONTRACEPTION 08/07/2012 ARISTIDES CARDONA PHD V24.2 F/U, ROUTINE 08/07/2012 ARISTIDES CARDONA PHD V25.01 CONTRACEPTION - ORAL CONTRACEPTION 08/07/2012 ARISTIDES CARDONA PHD V24.2 F/U, ROUTINE 08/07/2012 ARISTIDES CARDONA PHD V25.01 CONTRACEPTION - ORAL CONTRACEPTION 08/07/2012 ARISTIDES CARDONA PHD V24.2 F/U, ROUTINE 08/07/2012 ARISTIDES CARDONA PHD V25.01 CONTRACEPTION - ORAL CONTRACEPTION 08/07/2012 ARISTIDES CARDONA PHD V24.2 F/U, ROUTINE 08/07/2012 ARISTIDES CARDONA PHD V25.01 CONTRACEPTION - ORAL CONTRACEPTION 08/07/2012 ARISTIDES CARDONA PHD V24.2 F/U, ROUTINE 08/07/2012 ARISTIDES CARDONA PHD V25.01 CONTRACEPTION - ORAL CONTRACEPTION 08/07/2012 ANAID VIZCAINO APRN V24.2 F/U, ROUTINE 08/07/2012 ANAID VIZCAINO APRN V25.01 CONTRACEPTION - ORAL CONTRACEPTION 08/07/2012 NEWBY DO, JEFF K V24.2 F/U, ROUTINE 08/07/2012 NEWBY DO, JEFF K V25.01 CONTRACEPTION - ORAL CONTRACEPTION 08/07/2012 ARISTIDES CARDONA PHD V24.2 F/U, ROUTINE 08/07/2012 DULCE JUAREZ, ARISTIDES Jenkins V25.01 CONTRACEPTION - ORAL CONTRACEPTION 08/07/2012 ROSALINE BRITO APRN A V24.2 F/U, ROUTINE 08/07/2012 ROSALINE BRITO APRN A V25.01 CONTRACEPTION - ORAL CONTRACEPTION 08/07/2012 ARISTIDES CARDONA PHD V24.2 F/U, ROUTINE 08/07/2012 ARISTIDES CARDONA PHD V25.01 CONTRACEPTION - ORAL CONTRACEPTION 08/07/2012 ARISTIDES CARDONA PHD V24.2 F/U, ROUTINE 08/07/2012 ARISTIDES CARDONA PHD V25.01 CONTRACEPTION - ORAL CONTRACEPTION 08/07/2012 ISMAEL YEN MD V24.2 F/U, ROUTINE 08/07/2012 ISMAEL YEN MD V25.01 CONTRACEPTION - ORAL CONTRACEPTION 08/07/2012 SAVITA HERNADEZ APRN R V24.2 F/U, ROUTINE 08/07/2012 SAVITA HERNADEZ APRN R V25.01 CONTRACEPTION - ORAL CONTRACEPTION 08/07/2012 ARISTIDES CARDONA PHD V24.2 F/U, ROUTINE 08/07/2012 ARISTIDES CARDONA PHD V25.01 CONTRACEPTION - ORAL CONTRACEPTION 08/07/2012 SEBASTIAN SOLIZ MD V24.2 F/U, ROUTINE 08/07/2012 SEBASTIAN SOLIZ MD V25.01 CONTRACEPTION - ORAL CONTRACEPTION 08/07/2012 ARISTIDES CARDONA PHD V24.2 F/U, ROUTINE 08/07/2012 ARISTIDES CARDONA PHD V25.01 CONTRACEPTION - ORAL CONTRACEPTION 08/07/2012 ARISTIDES CARDONA PHD V24.2 F/U, ROUTINE 08/07/2012 ARISTIDES CARDONA PHD V25.01 CONTRACEPTION - ORAL CONTRACEPTION 08/07/2012 NEENA LCMF, BOB W V24.2 F/U, ROUTINE 08/07/2012 NEENA LCMF, BOB W V25.01 CONTRACEPTION - ORAL CONTRACEPTION 08/07/2012 NEENA LCMF, BOB W V24.2 F/U, ROUTINE 08/07/2012 NEENA LCMF, BOB W V25.01 CONTRACEPTION - ORAL CONTRACEPTION 08/07/2012 NEENA LCMF, BOB W V24.2 F/U, ROUTINE 08/07/2012 NEENA LCMF, BOB W V25.01 CONTRACEPTION - ORAL CONTRACEPTION 08/07/2012 ALISHA SANTIAGO, ROSALINE A V24.2 F/U, ROUTINE 08/07/2012 ALISHAADRIA SANTIAGO, ROSALINE A V25.01 CONTRACEPTION - ORAL CONTRACEPTION 09/12/2012 300.02 AN GEN ANXIETY 09/12/2012 311 MO DEPRESS NOS 09/12/2012 300.02 AN GEN ANXIETY 09/12/2012 311 MO DEPRESS NOS 09/12/2012 300.02 AN GEN ANXIETY 09/12/2012 311 MO DEPRESS NOS 09/12/2012 300.02 AN GEN ANXIETY 09/12/2012 311 MO DEPRESS NOS 09/12/2012 300.02 AN GEN ANXIETY 09/12/2012 311 MO DEPRESS NOS 09/12/2012 300.02 AN GEN ANXIETY 09/12/2012 311 MO DEPRESS NOS 09/12/2012 300.02 AN GEN ANXIETY 09/12/2012 311 MO DEPRESS NOS 09/12/2012 300.02 AN GEN ANXIETY 09/12/2012 311 MO DEPRESS NOS 09/12/2012 300.02 AN GEN ANXIETY 09/12/2012 311 MO DEPRESS NOS 09/12/2012 300.02 AN GEN ANXIETY 09/12/2012 311 MO DEPRESS NOS 09/12/2012 ARISTIDES CARDONA PHD 300.02 AN GEN ANXIETY 09/12/2012 ARISTIDES CARDONA PHD 311 MO DEPRESS NOS 09/12/2012 ARISTIDES CARDONA PHD 300.02 AN GEN ANXIETY 09/12/2012 ARISTIDES CARDONA PHD 311 MO DEPRESS NOS 09/12/2012 ARISTIDES CARDONA PHD 300.02 AN GEN ANXIETY 09/12/2012 DULCE PHD, ARISTIDES Jenkins 311 MO DEPRESS NOS 09/12/2012 DULCE JUAREZ, ARISTIDES Jenkins 300.02 AN GEN ANXIETY 09/12/2012 DULCE JUAREZ, ARISTIDES Jenkins 311 MO DEPRESS NOS 09/12/2012 DULCE JUAREZ, ARISTIDES Jenkins 300.02 AN GEN ANXIETY 09/12/2012 DULCE JUAREZ, ARISTIDES Jenkins 311 MO DEPRESS NOS 09/12/2012 DULCE JUAREZ, ARISTIDES Jenkins 300.02 AN GEN ANXIETY 09/12/2012 DULCE JUAREZ, ARISTIDES Jenkins 311 MO DEPRESS NOS 09/12/2012 DULCE JUAREZ, ARISTIDES Jenkins 300.02 AN GEN ANXIETY 09/12/2012 DULCE JUAREZ, ARISTIDES Jenkins 311 MO DEPRESS NOS 09/12/2012 DULCE JUAREZ, ARISTIDES Jenkins 300.02 AN GEN ANXIETY 09/12/2012 DULCE JUAREZ, ARISTIDES Jenkins 311 MO DEPRESS NOS 09/12/2012 ANAID VIZCAINO APRN 300.02 AN GEN ANXIETY 09/12/2012 ANAID VIZCAINO APRN 311 MO DEPRESS NOS 09/12/2012 JEFF NEWBY DO 300.02 AN GEN ANXIETY 09/12/2012 JEFF NEWBY DO 311 MO DEPRESS NOS 09/12/2012 DULCE JUAREZ, ARISTIDES Jenkins 300.02 AN GEN ANXIETY 09/12/2012 DULCE JUAREZ, ARISTIDES Jenkins 311 MO DEPRESS NOS 09/12/2012 ROSALINE BRITO APRN 300.02 AN GEN ANXIETY 09/12/2012 ROSALINE BRITO APRN 311 MO DEPRESS NOS 09/12/2012 DULCE JUAREZ, ARISTIDES Jenkins 300.02 AN GEN ANXIETY 09/12/2012 DULCE JUAREZ, ARISTIDES Jenkins 311 MO DEPRESS NOS 09/12/2012 DULCE JUAREZ, ARISTIDES Jenkins 300.02 AN GEN ANXIETY 09/12/2012 DULCE JUAREZ, ARISTIDES Jenkins 311 MO DEPRESS NOS 09/12/2012 ISMAEL YEN MD 300.02 AN GEN ANXIETY 09/12/2012 ISMAEL YEN MD 311 MO DEPRESS NOS 09/12/2012 SAVITA HERNADEZ APRN 300.02 AN GEN ANXIETY 09/12/2012 SAVITA HERNADEZ APRN 311 MO DEPRESS NOS 09/12/2012 DULCE JUAREZ, ARISTIDES Jenkins 300.02 AN GEN ANXIETY 09/12/2012 DULCE JUAREZ, ARISTIDSE Jenkins 311 MO DEPRESS NOS 09/12/2012 SEBASTIAN SOLIZ MD 300.02 AN GEN ANXIETY 09/12/2012 SEBASTIAN SOLIZ MD 311 MO DEPRESS NOS 09/12/2012 DULCE JUAREZ, ARISTIDES Jenkins 300.02 AN GEN ANXIETY 09/12/2012 DULCE JUAREZ, ARISTIDES Jenkins 311 MO DEPRESS NOS 09/12/2012 DULCE JUAREZ, ARISTIDES Jenkins 300.02 AN GEN ANXIETY 09/12/2012 DULCE JUAREZ, ARISTIDES Jenkins 311 MO DEPRESS NOS 09/12/2012 [facility], BOB W 300.02 AN GEN ANXIETY 09/12/2012 NEENA [facility], BOB W 311 MO DEPRESS NOS 09/12/2012 NEENA [facility], BOB W 300.02 AN GEN ANXIETY 09/12/2012 NEENA [facility], BOB W 311 MO DEPRESS NOS 09/12/2012 NEENA [facility], BOB W 300.02 AN GEN ANXIETY 09/12/2012 NEENA [facility], BOB W 311 MO DEPRESS NOS 09/12/2012 ROSALINE BRITO APRN 300.02 AN GEN ANXIETY 09/12/2012 ROSALINE BRITO APRN 311 MO DEPRESS NOS 10/09/2012 300.00 AN ANXIETY UNSPEC 10/09/2012 300.00 AN ANXIETY UNSPEC 10/09/2012 300.00 AN ANXIETY UNSPEC 10/09/2012 300.00 AN ANXIETY UNSPEC 10/09/2012 300.00 AN ANXIETY UNSPEC 10/09/2012 300.00 AN ANXIETY UNSPEC 10/09/2012 300.00 AN ANXIETY UNSPEC 10/09/2012 300.00 AN ANXIETY UNSPEC 10/09/2012 300.00 AN ANXIETY UNSPEC 10/09/2012 ARISTIDES CARDONA PHD 300.00 AN ANXIETY UNSPEC 10/09/2012 ARISTIDES CARDONA PHD 300.00 AN ANXIETY UNSPEC 10/09/2012 ARISTIDES CARDONA PHD 300.00 AN ANXIETY UNSPEC 10/09/2012 ARISTIDES CARDONA PHD 300.00 AN ANXIETY UNSPEC 10/09/2012 ARISTIDES CARDONA PHD 300.00 AN ANXIETY UNSPEC 10/09/2012 ARISTIDES CARDONA PHD 300.00 AN ANXIETY UNSPEC 10/09/2012 ARISTIDES CARDONA PHD 300.00 AN ANXIETY UNSPEC 10/09/2012 ARISTIDES CARDONA PHD 300.00 AN ANXIETY UNSPEC 10/09/2012 ANAID VIZCAINO APRN 300.00 AN ANXIETY UNSPEC 10/09/2012 NEWBY DO, JEFF K 300.00 AN ANXIETY UNSPEC 10/09/2012 ARISTIDES CARDONA PHD 300.00 AN ANXIETY UNSPEC 10/09/2012 ROSALINE BRITO APRN A 300.00 AN ANXIETY UNSPEC 10/09/2012 ARISTIDES CARDONA PHD 300.00 AN ANXIETY UNSPEC 10/09/2012 ARISTIDES CARDONA PHD 300.00 AN ANXIETY UNSPEC 10/09/2012 ISMAEL YEN MD 300.00 AN ANXIETY UNSPEC 10/09/2012 SAVITA HERNADEZ APRN 300.00 AN ANXIETY UNSPEC 10/09/2012 DULCE JUAREZ, ARISTIDES Jenkins 300.00 AN ANXIETY UNSPEC 10/09/2012 SEBASTIAN SOLIZ MD 300.00 AN ANXIETY UNSPEC 10/09/2012 DULCE JUAREZ, ARISTIDES Jenkins 300.00 AN ANXIETY UNSPEC 10/09/2012 ARISTIDES CARDONA PHD 300.00 AN ANXIETY UNSPEC 10/09/2012 NEENA DODGEMF, BOB W 300.00 AN ANXIETY UNSPEC 10/09/2012 NEENA DODGEMF, BOB W 300.00 AN ANXIETY UNSPEC 10/09/2012 NEENA DODGEMF, BOB W 300.00 AN ANXIETY UNSPEC 10/09/2012 ROSALINE BRITO APRN A 300.00 AN ANXIETY UNSPEC 03/18/2013 682.9 CELLULITIS AND ABSCESS OF UNSPECIFIED SITES 03/18/2013 682.9 CELLULITIS AND ABSCESS OF UNSPECIFIED SITES 03/18/2013 ARISTIDES CARDONA PHD 682.9 CELLULITIS AND ABSCESS OF UNSPECIFIED SITES 03/18/2013 ARISTIDES CARDONA PHD 682.9 CELLULITIS AND ABSCESS OF UNSPECIFIED SITES 03/18/2013 ARISTIDES CARDONA PHD 682.9 CELLULITIS AND ABSCESS OF UNSPECIFIED SITES 03/18/2013 ARISTIDES CARDONA PHD 682.9 CELLULITIS AND ABSCESS OF UNSPECIFIED SITES 03/18/2013 ARISTIDES CARDONA PHD 682.9 CELLULITIS AND ABSCESS OF UNSPECIFIED SITES 03/18/2013 ARISTIDES CARDONA PHD 682.9 CELLULITIS AND ABSCESS OF UNSPECIFIED SITES 03/18/2013 ARISTIDES CARDONA PHD 682.9 CELLULITIS AND ABSCESS OF UNSPECIFIED SITES 03/18/2013 ARISTIDES CARDONA PHD 682.9 CELLULITIS AND ABSCESS OF UNSPECIFIED SITES 03/18/2013 ANAID VIZCAINO APRN 682.9 CELLULITIS AND ABSCESS OF UNSPECIFIED SITES 03/18/2013 JEFF NEWBY DO 682.9 CELLULITIS AND ABSCESS OF UNSPECIFIED SITES 03/18/2013 DULCE JUAREZ, ARISTIDES Jenkins 682.9 CELLULITIS AND ABSCESS OF UNSPECIFIED SITES 03/18/2013 ROSALINE BRITO APRN 682.9 CELLULITIS AND ABSCESS OF UNSPECIFIED SITES 03/18/2013 DULCE JUAREZ, ARISTIDES Jenkins 682.9 CELLULITIS AND ABSCESS OF UNSPECIFIED SITES 03/18/2013 DULCE JUAREZ, ARISTIDES Jenkins 682.9 CELLULITIS AND ABSCESS OF UNSPECIFIED SITES 03/18/2013 YOVANA HAYWOOD, ISMAEL 682.9 CELLULITIS AND ABSCESS OF UNSPECIFIED SITES 03/18/2013 SAVITA HERNADEZ APRN 682.9 CELLULITIS AND ABSCESS OF UNSPECIFIED SITES 03/18/2013 DULCE JUAREZ, ARISTIDES Jenkins 682.9 CELLULITIS AND ABSCESS OF UNSPECIFIED SITES 03/18/2013 MARTÍNEZ HAYWOOD, SEBASTIAN Berg 682.9 CELLULITIS AND ABSCESS OF UNSPECIFIED SITES 03/18/2013 DULCE JUAREZ, ARISTIDES Jenkins 682.9 CELLULITIS AND ABSCESS OF UNSPECIFIED SITES 03/18/2013 DULCE JUAREZ, ARISTIDES Jenkins 682.9 CELLULITIS AND ABSCESS OF UNSPECIFIED SITES 03/18/2013 NEENA DODGEMF, BOB W 682.9 CELLULITIS AND ABSCESS OF UNSPECIFIED SITES 03/18/2013 NEENA LCMF, BOB W 682.9 CELLULITIS AND ABSCESS OF UNSPECIFIED SITES 03/18/2013 NEENA LCMF, BOB W 682.9 CELLULITIS AND ABSCESS OF UNSPECIFIED SITES 03/18/2013 ROSALINE BRITO APRN 682.9 CELLULITIS AND ABSCESS OF UNSPECIFIED SITES 04/19/2013 JESSICA HAYWOOD, UNIQUE Dailey Ot 883.0 04/19/2013 JESSICA HAYWOOD, UNIQUE Dailey Ot E000.8 04/19/2013 UNIQUE LOPEZ MD Ot E029.9 04/19/2013 UNIQUE LOPEZ MD Ot E849.0 04/19/2013 UNIQUE LOPEZ MD Ot E920.3 04/19/2013 JESSICA HAYWOOD, UNIQUE Dailey Ot V06.1 11/08/2013 ANAID VIZCAINO APRN 681.11 PARONYCHIA 11/08/2013 JEFF NEWBY DO 681.11 PARONYCHIA 11/08/2013 DULCE JUAREZ, ARISTIDES Jenkins 681.11 PARONYCHIA 11/08/2013 ROSALINE BRITO APRN A 681.11 PARONYCHIA 11/08/2013 DULCE JUAREZ, ARISTIDES Jenkins 681.11 PARONYCHIA 11/08/2013 DULCE JUAREZ, ARISTIDES Jenkins 681.11 PARONYCHIA 11/08/2013 ISMAEL YEN MD 681.11 PARONYCHIA 11/08/2013 SAVITA HERNADEZ APRN 681.11 PARONYCHIA 11/08/2013 DULCE JUAREZ, ARISTIDES Jenkins 681.11 PARONYCHIA 11/08/2013 SEBASTIAN SOLIZ MD 681.11 PARONYCHIA 11/08/2013 DULCE JUAREZ, ARISTIDES Jenkins 681.11 PARONYCHIA 11/08/2013 DULCE JUAREZ, ARISTIDES Jenkins 681.11 PARONYCHIA 11/08/2013 NEENA LCMF, BOB Hamilton 681.11 PARONYCHIA 11/08/2013 NEENA LCMF, BOB W 681.11 PARONYCHIA 11/08/2013 NEENA LCMF, BOB W 681.11 PARONYCHIA 11/08/2013 ROSALINE BRITO APRN A 681.11 PARONYCHIA 11/17/2013 JEFF NEWBY DO 625.8 OTHER SPECIFIED SYMPTOMS ASSOCIATED WITH FEMALE GENITAL ORGANS 11/17/2013 ARISTIDES CARDONA PHD 625.8 OTHER SPECIFIED SYMPTOMS ASSOCIATED WITH FEMALE GENITAL ORGANS 11/17/2013 ROSALINE BRITO APRN 625.8 OTHER SPECIFIED SYMPTOMS ASSOCIATED WITH FEMALE GENITAL ORGANS 11/17/2013 ARISTIDES CARDONA PHD 625.8 OTHER SPECIFIED SYMPTOMS ASSOCIATED WITH FEMALE GENITAL ORGANS 11/17/2013 ARISTIDES CARDONA PHD 625.8 OTHER SPECIFIED SYMPTOMS ASSOCIATED WITH FEMALE GENITAL ORGANS 11/17/2013 ISMAEL YEN MD 625.8 OTHER SPECIFIED SYMPTOMS ASSOCIATED WITH FEMALE GENITAL ORGANS 11/17/2013 SAVITA HERNADEZ APRN 625.8 OTHER SPECIFIED SYMPTOMS ASSOCIATED WITH FEMALE GENITAL ORGANS 11/17/2013 ARISTIDES CARDONA PHD 625.8 OTHER SPECIFIED SYMPTOMS ASSOCIATED WITH FEMALE GENITAL ORGANS 11/17/2013 SEBASTIAN SOLIZ MD 625.8 OTHER SPECIFIED SYMPTOMS ASSOCIATED WITH FEMALE GENITAL ORGANS 11/17/2013 DULCE JUAREZ, ARISTIDSE Jenkins 625.8 OTHER SPECIFIED SYMPTOMS ASSOCIATED WITH FEMALE GENITAL ORGANS 11/17/2013 DULCE JUAREZ, ARISTIDES Jenkins 625.8 OTHER SPECIFIED SYMPTOMS ASSOCIATED WITH FEMALE GENITAL ORGANS 11/17/2013 NEENA FRANCE, BOB Hamilton 625.8 OTHER SPECIFIED SYMPTOMS ASSOCIATED WITH FEMALE GENITAL ORGANS 11/17/2013 NEENA MICHAUDF, BOB W 625.8 OTHER SPECIFIED SYMPTOMS ASSOCIATED WITH FEMALE GENITAL ORGANS 11/17/2013 NEENA MICHAUDF, BOB W 625.8 OTHER SPECIFIED SYMPTOMS ASSOCIATED WITH FEMALE GENITAL ORGANS 11/17/2013 ALISHA APRN, ROSALINE A 625.8 OTHER SPECIFIED SYMPTOMS ASSOCIATED WITH FEMALE GENITAL ORGANS 12/24/2013 ALISHAROSALINE Berg APRN A V72.31 LETTERPRESS SETTER EXAM, ROUTINE 12/24/2013 ALISHAROSALINE Berg APRN A V76.10 BREAST CANCER SCREENING 12/24/2013 DULCE JUAREZ, ARISTIDES Jenkins V72.31 LETTERPRESS SETTER EXAM, ROUTINE 12/24/2013 ARISTIDES CARDONA PHD V76.10 BREAST CANCER SCREENING 12/24/2013 ARISTIDES CARDONA PHD V72.31 LETTERPRESS SETTER EXAM, ROUTINE 12/24/2013 ARISTIDES CARDONA PHD V76.10 BREAST CANCER SCREENING 12/24/2013 ISMAEL YEN MD V72.31 LETTERPRESS SETTER EXAM, ROUTINE 12/24/2013 ISMAEL YEN MD V76.10 BREAST CANCER SCREENING 12/24/2013 SAVITA HERNADEZ APRN R V72.31 LETTERPRESS SETTER EXAM, ROUTINE 12/24/2013 SAVITA HERNADEZ APRN R V76.10 BREAST CANCER SCREENING 12/24/2013 ARISTIDES CARDONA PHD V72.31 LETTERPRESS SETTER EXAM, ROUTINE 12/24/2013 ARISTIDES CARDONA PHD V76.10 BREAST CANCER SCREENING 12/24/2013 SEBASTIAN SOLIZ MD V72.31 LETTERPRESS SETTER EXAM, ROUTINE 12/24/2013 SEBASTIAN SOLIZ MD V76.10 BREAST CANCER SCREENING 12/24/2013 ARISTIDES CARDONA PHD V72.31 LETTER[employer] SETTER EXAM, ROUTINE 12/24/2013 ARISTIDES CARDONA PHD V76.10 BREAST CANCER SCREENING 12/24/2013 ARISTIDES CARDONA PHD V72.31 LETTER[employer] SETTER EXAM, ROUTINE 12/24/2013 ARISTIDES CARDONA PHD V76.10 BREAST CANCER SCREENING 12/24/2013 NEENA FRANCE, BOB W V72.31 LETTER[employer] SETTER EXAM, ROUTINE 12/24/2013 NEENA LCMF, BOB W V76.10 BREAST CANCER SCREENING 12/24/2013 NEENA LCMF, BOB W V72.31 LETTER[employer] SETTER EXAM, ROUTINE 12/24/2013 NEENA LCMF, BOB W V76.10 BREAST CANCER SCREENING 12/24/2013 NEENA LCMF, BOB W V72.31 LETTER[employer] SETTER EXAM, ROUTINE 12/24/2013 NEENA LCMF, BOB W V76.10 BREAST CANCER SCREENING 12/24/2013 ALISHA PAMELA, ROSALINE A V72.31 [employer] SETTER EXAM, ROUTINE 12/24/2013 ALISHA DIRECTOR OF AUTOMATION, ROSALINE A V76.10 BREAST CANCER SCREENING 02/07/2014 DULCE JUAREZ, ARISTIDES Jenkins 704.8 OTHER SPECIFIED DISEASES OF HAIR AND HAIR FOLLICLES 02/07/2014 ISMAEL YEN MD 704.8 OTHER SPECIFIED DISEASES OF HAIR AND HAIR FOLLICLES 02/07/2014 SAVITA HERNADEZ APRN 704.8 OTHER SPECIFIED DISEASES OF HAIR AND HAIR FOLLICLES 02/07/2014 DULCE JUAREZ, ARISTIDES Jenkins 704.8 OTHER SPECIFIED DISEASES OF HAIR AND HAIR FOLLICLES 02/07/2014 MARTÍNEZ HAYWOOD, SEBASTIAN Berg 704.8 OTHER SPECIFIED DISEASES OF HAIR AND HAIR FOLLICLES 02/07/2014 DULCE JUAREZ, ARISTIDES Jenkins 704.8 OTHER SPECIFIED DISEASES OF HAIR AND HAIR FOLLICLES 02/07/2014 DULCE JUAREZ, ARISTIDES Jenkins 704.8 OTHER SPECIFIED DISEASES OF HAIR AND HAIR FOLLICLES 02/07/2014 NEENA [facility], BOB Hamilton 704.8 OTHER SPECIFIED DISEASES OF HAIR AND HAIR FOLLICLES 02/07/2014 [facility] Hamilton 704.8 OTHER SPECIFIED DISEASES OF HAIR AND HAIR FOLLICLES 02/07/2014 [facility] 704.[facility] OTHER SPECIFIED DISEASES OF HAIR AND HAIR FOLLICLES 02/07/2014 ROSALINE BRITO APRN A 704.8 OTHER SPECIFIED DISEASES OF HAIR AND HAIR FOLLICLES 02/23/2014 ISMAEL YEN MD 692.9 CONTACT DERMATITIS AND OTHER ECZEMA UNSPECIFIED CAUSE 02/23/2014 SAVITA HERNADEZ APRN 692.9 CONTACT DERMATITIS AND OTHER ECZEMA UNSPECIFIED CAUSE 02/23/2014 DULCE JUAREZ, ARISTIDES Jenkins 692.9 CONTACT DERMATITIS AND OTHER ECZEMA UNSPECIFIED CAUSE 02/23/2014 MARTÍNEZ HAYWOOD, SEBASTIAN Berg 692.9 CONTACT DERMATITIS AND OTHER ECZEMA UNSPECIFIED CAUSE 02/23/2014 DULCE JUAREZ, ARISTIDES Jenkins 692.9 CONTACT DERMATITIS AND OTHER ECZEMA UNSPECIFIED CAUSE 02/23/2014 DULCE JUAREZ, ARISTIDES Jenkins 692.9 CONTACT DERMATITIS AND OTHER ECZEMA UNSPECIFIED CAUSE 02/23/2014 NEENA LCMF, BOB Hamilton 692.9 CONTACT DERMATITIS AND OTHER ECZEMA UNSPECIFIED CAUSE 02/23/2014 NEENA LCMF, BOB Hamilton 692.9 CONTACT DERMATITIS AND OTHER ECZEMA UNSPECIFIED CAUSE 02/23/2014 NEENA LCMF, BOB Hamilton 692.9 CONTACT DERMATITIS AND OTHER ECZEMA UNSPECIFIED CAUSE 02/23/2014 ALISHA SANTIAGO, ROSALINE Dailey 692.9 CONTACT DERMATITIS AND OTHER ECZEMA UNSPECIFIED CAUSE 03/05/2014 SAVITA HERNADEZ APRN 786.2 COUGH 03/05/2014 DULCE PHD, ARISTIDES Jenkins 786.2 COUGH 03/05/2014 MARTÍNEZ HAYWOOD, SEBASTIAN Berg 786.2 COUGH 03/05/2014 DULCE PHD, ARISTIDES Jenkins 786.2 COUGH 03/05/2014 DULCE PHD, ARISTIDES Jenkins 786.2 COUGH 03/05/2014 NEENA LCMF, BOB W 786.2 COUGH 03/05/2014 NEENA LCMF, BOB W 786.2 COUGH 03/05/2014 NEENA LCMF, BOB W 786.2 COUGH 03/05/2014 ALISHA SANTIAGO, ROSALINE A 786.2 COUGH 10/08/2014 NEENA LCMF, BOB W 314.01 ADHD COMBINED 10/08/2014 NEENA LCMF, BOB W 314.01 ADHD COMBINED 10/08/2014 ALISHA TINOCON, ROSALINE A 314.01 ADHD COMBINED 11/04/2014 NEENA LCMF, BOB W 296.90 MOOD DISORDER NOS 11/04/2014 ALISHA SANTIAGO, ROSALINE A 296.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 DISORDER NOS 11/09/2014 ALISHA SANTIAGO, ROSALINE Dailey V26.9 PROCREATIVE MANAGEMENT 01/21/2015 Ot V28.89 02/26/2015 ROSALINE BRITO APRN Ot V22.1 03/05/2015 Ot V28.89 03/05/2015 ROSALINE BRITO DIRECTOR OF AUTOMATION Ot V22.1 03/23/2015 Ot V28.89 03/23/2015 ALISHAROSALINE DIRECTOR OF AUTOMATION Ot V22.1 03/30/2015 JEFF NEWBY DO Ot V22.1 05/25/2015 JEFF NEWBY DO Ot V22.1 08/10/2015 JEFF NEWBY DO Ot V22.1 08/10/2015 SEBASTIAN SOLIZ MD Ot O36.5930 08/10/2015 SEBASTIAN SOLIZ MD Ot Z3A.37 08/12/2015 SEBASTIAN SOLIZ MD Ot F32.9 MAJOR DEPRESSIVE DISORDER, SINGLE EPISOD 08/12/2015 SEBASTIAN SOLIZ MD Ot O48.0 POST-TERM 08/12/2015 SEBASTIAN SOLIZ MD Ot O69.81X0 LABOR AND DEL COMP BY CORD AROUND NECK , 08/12/2015 SEBASTIAN SOLIZ MD Ot O71.4 OBSTETRIC HIGH VAGINAL LACERATION ALONE 08/12/2015 SEBASTIAN SOLIZ MD Ot 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 08/12/2015 SEBASTIAN SOLIZ MD Ot Z37.0 SINGLE LIVE 08/12/2015 SEBASTIAN SOLIZ MD Ot Z3A.40 40 WEEKS GESTATION OF 09/02/2015 SEBASTIAN SOLIZ MD Ot O36.5930 09/02/2015 SEBASTIAN SOLIZ MD, Ot Z3A.37 09/22/2015 JEFF NEWBY DO Ot V22.1 09/22/2015 SEBASTIAN SOLIZ MD Ot O36.5930 09/22/2015 SEBASTIAN SOLIZ MD Ot Z3A.37 12/06/2016 JEFF NEWBY DO Ot V22.1 SUPERVIS OTH NORMAL PREG 12/06/2016 SEBASTIAN SOLIZ MD Ot O36.5930 MATERN CARE FOR OTH OR SUSP POOR FETL GR 12/06/2016 SEBASTIAN SOLIZ MD Ot Z3A.37 37 WEEKS GESTATION OF 12/25/2016 SEBASTIAN SOLIZ MD Ot Z34.82 ENCOUNTER FOR SUPRVSN OF NORMAL PREGNANC 02/13/2017 SEBASTIAN SOLIZ MD Ot Z36 ENCOUNTER FOR SCREENING OF MOT 02/13/2017 SEBASTIAN SOLIZ MD Ot Z3A.24 24 WEEKS GESTATION OF 02/26/2017 SEBASTIAN SOLIZ MD Ot Z36 ENCOUNTER FOR SCREENING OF MOT 02/26/2017 SEBASTIAN SOLIZ MD Ot Z3A.24 24 WEEKS GESTATION OF 03/22/2017 SEBASTIAN SOLIZ MD Ot Z36 ENCOUNTER FOR SCREENING OF MOT 03/22/2017 SEBASTIAN SOLIZ MD Ot Z3A.00 WEEKS OF GESTATION OF NOT SPEC 05/18/2017 NEWBY DO JEFF K Ot V22.1 SUPERVIS OTH NORMAL PREG 05/18/2017 SEBASTIAN SOLIZ MD Ot O36.5930 MATERN CARE FOR OTH OR SUSP POOR FETL GR 05/18/2017 SEBASTIAN SOLIZ MD Ot Z3A.37 37 WEEKS GESTATION OF 05/18/2017 SEBASTIAN SOLIZ MD Ot Z34.82 ENCOUNTER FOR SUPRVSN OF NORMAL PREGNANC 05/18/2017 SEBASTIAN SOLIZ MD Ot Z36 ENCOUNTER FOR SCREENING OF MOT 05/18/2017 SEBASTIAN SOLIZ MD Ot Z3A.24 24 WEEKS GESTATION OF 05/18/2017 SEBASTIAN SOLIZ MD Ot Z36 ENCOUNTER FOR SCREENING OF MOT 05/18/2017 SEBASTIAN SOLIZ MD Ot Z3A.00 WEEKS OF GESTATION OF NOT SPEC 05/18/2017 JEFF NEWBY DO Ot V22.1 SUPERVIS OTH NORMAL PREG 05/18/2017 SEBASTIAN SOLIZ MD Ot O36.5930 MATERN CARE FOR OTH OR SUSP POOR FETL GR 05/18/2017 SEBASTIAN SOLIZ MD Ot Z3A.37 37 WEEKS GESTATION OF 05/18/2017 SEBASTIAN SOLIZ MD Ot Z34.82 ENCOUNTER FOR SUPRVSN OF NORMAL PREGNANC 05/18/2017 SEBASTIAN SOLIZ MD Ot Z36 ENCOUNTER FOR SCREENING OF MOT 05/18/2017 SEBASTIAN SOLIZ MD Ot Z3A.24 24 WEEKS GESTATION OF 05/18/2017 SEBASTIAN SOLIZ MD Ot Z36 ENCOUNTER FOR SCREENING OF MOT 05/18/2017 MARTÍNEZ HAYWOOD, SEBASTIAN Berg Ot Z3A.00 WEEKS OF GESTATION OF NOT SPEC Procedures Code [place] [address] UA OB DIP 2011 25602 UA OB DIP 2011 57908 CULTURE GROUP B STREP VAG 05/24/2012 34669 UA OB DIP 2011 27910 UA OB DIP 2011 98424 UA OB DIP 2011 40636 UA OB DIP 2011 51674 URINE TEST (IN-HOUSE) 08/07/2012 82056 PSYCH DIAGNOSTIC EVALUATION 09/12/2012 32038 PSYTX PT&/FAMILY 45 MINUTES 10/10/2012 73433 PSYTX PT&/FAMILY 45 MINUTES 11/14/2012 26909 PSYTX PT&/FAMILY 45 MINUTES 12/17/2012 00610 PSYTX PT&/FAMILY 45 MINUTES 12/30/2012 80050 PSYTX PT&/FAMILY 45 MINUTES 01/03/2013 13011 PSYTX PT&/FAMILY 45 MINUTES 02/24/2013 J0696 ROCEPHIN INJ 09/2012 27082 PSYTX PT&/FAMILY 45 MINUTES 03/20/2013 36304 CULTURE WOUND (AEROBIC) 03/23/2013 03385 PSYTX PT&/FAMILY 30 MINUTES 04/07/2013 38379 PSYTX PT&/FAMILY 45 MINUTES 05/02/2013 04464 PSYTX PT&/FAMILY 45 MINUTES 05/30/2013 33371 URINE TEST (IN-HOUSE) 06/30/2013 43079 PSYTX PT&/FAMILY 30 MINUTES 07/04/2013 40492 PSYTX PT&/FAMILY 45 MINUTES 08/06/2013 82693 PSYTX PT&/FAMILY 45 MINUTES 09/05/2013 26513 PSYTX PT&/FAMILY 45 MINUTES 10/01/2013 31478 PSYTX PT&/FAMILY 45 MINUTES 10/22/2013 61216 UA W/ CULTURE IF INDICATED 11/17/2013 09492 PSYTX PT&/FAMILY 45 MINUTES 11/18/2013 26143 CULTURE URINE 01/2014 40798 PSYTX PT&/FAMILY 45 MINUTES 12/18/2013 63120 PSYTX PT&/FAMILY 30 MINUTES 01/07/2014 04730 PSYTX PT&/FAMILY 45 MINUTES 02/19/2014 47706 OXIMETRY 2013 04978 PSYTX PT&/FAMILY 45 MINUTES 03/31/2014 78451 PSYTX PT&/FAMILY 45 MINUTES 04/22/2014 03328 PSYTX PT&/FAMILY 45 MINUTES 07/08/2014 30675 PSYTX PT&/FAMILY 45 MINUTES 08/27/2014 38853 PSYTX PT&/FAMILY 45 MINUTES 10/09/2014 82097 PSYTX PT&/FAMILY 45 MINUTES 11/04/2014 [id number] REPAIR VAGINA, OPEN APPROACH 08/10/2015 [id number] DELIVERY OF PRODUCTS OF CONCEPTION, EXTE 08/10/2015 [id number] INTRODUCE OTH THERAP SUBST IN PERIPH VEI 08/10/2015 Results Test Result Range Complete blood count (CBC) with automated white blood cell (WBC) differential - 05/28/17 14:45 Blood leukocytes automated count (number/volume) 11.2 10*3/ uL 4.3-11.0 Blood erythrocytes automated count (number/volume) 4.41 10*6 /uL 4.35-5.85 Venous blood hemoglobin measurement (mass/volume) 10.4 g/dL 11.5-16.0 Blood hematocrit (volume fraction) 33 % 35-52 Automated erythrocyte mean corpuscular volume 75 [foz_us] 80-99 Automated erythrocyte mean corpuscular hemoglobin (mass per erythrocyte) 24 pg 25-34 Automated erythrocyte mean corpuscular hemoglobin concentration measurement ( mass/volume) 32 g/dL 32-36 Automated erythrocyte distribution width ratio 15.9 % 10.0-14.5 Automated blood platelet count (count/volume) 271 10*3/uL 130-400 Automated blood platelet mean volume measurement 11.6 [foz_ us] 7.4-10.4 Automated blood neutrophils/100 leukocytes 82 % 42-75 Automated blood lymphocytes/100 leukocytes 12 % 12-44 Blood monocytes/100 leukocytes 5 % 0-12 Automated blood eosinophils/100 leukocytes 0 % 0-10 Automated blood basophils/100 leukocytes 0 % 0-10 Blood neutrophils automated count (number/volume) 9.2 10*3 1.8-7.8 Blood lymphocytes automated count (number/volume) 1.4 10*3 1.0-4.0 Blood monocytes automated count (number/volume) 0.6 10*3 0.0-1.0 Automated eosinophil count 0.0 10*3/uL 0.0-0.3 Automated blood basophil count (count/volume) 0.0 10*3/uL 0.0-0.1 Encounters ACCT No. Visit Date/Time Discharge Status Pt. Type Provider Facility Loc./Unit Complaint [id number] 11/09/2014 15:53:00 11/09/2014 23: 59:59 CLS Outpatient ROSALINE BRITO APRN [id number] 11/04/2014 13:50:00 11/04/2014 23: 59:59 CLS Outpatient NEENA LCMFBOB [id number] 10/08/2014 14:57:00 10/08/2014 23: 59:59 CLS Outpatient NEENA LCMF, B[facility] [place] [id number] 08/26/2014 09:59:00 08/26/2014 23: 59:59 CLS Outpatient NEENA LCMFBOB [id number] 07/08/2014 09:54:00 07/08/2014 23: 59:59 CLS Outpatient ARISTIDES CARDONA PHD [id number] 04/22/2014 12:59:00 04/22/2014 23: 59:59 CLS Outpatient ARISTIDES CARDONA PHD [id number] 04/03/2014 10:55:00 04/03/2014 23: 59:59 CLS Outpatient SEBASTIAN SOLIZ MD [id number] 03/31/2014 13:53:00 03/31/2014 23: 59:59 CLS Outpatient ARISTIDES CARDONA PHD [id number] 03/05/2014 11:55:00 03/05/2014 23: 59:59 CLS Outpatient SAVITA HERNADEZ APRN [id number] 02/23/2014 10:57:00 02/23/2014 23: 59:59 CLS Outpatient ISMAEL YEN MD [id number] 02/19/2014 15:47:00 02/19/2014 23: 59:59 CLS Outpatient ARISTIDES CARDONA PHD [id number] 01/07/2014 12:35:00 01/07/2014 23: 59:59 CLS Outpatient ARISTIDES CARDONA PHD [id number] 12/24/2013 10:40:00 12/24/2013 23: 59:59 CLS Outpatient ROSALINE BRITO APRN [id number] 12/17/2013 12:37:00 12/17/2013 23: 59:59 CLS Outpatient ARISTIDES CARDONA PHD [id number] 11/17/2013 14:30:00 11/17/2013 23: 59:59 CLS Outpatient JEFF NEWBY DO [id number] 11/08/2013 10:19:00 11/08/2013 23: 59:59 CLS Outpatient ANAID VIZCAINO APRN [id number] 10/22/2013 09:52:00 10/22/2013 23: 59:59 GREGORY Outpatient ARISTIDES CARDONA PHD [id number] 09/30/2013 10:52:00 09/30/2013 23: 59:59 GREGORY Outpatient ARISTIDES CARDONA PHD [id number] 09/05/2013 08:52:00 09/05/2013 23: 59:59 GREGORY Outpatient ARISTIDES CARDONA PHD [id number] 08/05/2013 15:00:00 08/05/2013 23: 59:59 GREGORY Outpatient ARISTIDES CARDONA PHD [id number] 07/04/2013 16:07:00 07/04/2013 23: 59:59 GREGORY Outpatient ARISTIDES CARDOAN PHD [id number] 05/28/2013 13:54:00 05/28/2013 23: 59:59 GREGORY Outpatient ARISTIDES CARDONA PHD [id number] 05/02/2013 13:16:00 05/02/2013 23: 59:59 GREGORY Outpatient ARISTIDES CARDONA PHD [id number] 04/04/2013 15:30:00 04/04/2013 23: 59:59 GREGORY Outpatient ARISTIDES CARDONA PHD [id number] 10/09/2012 08:09:00 10/09/2012 23: 59:59 CLS Outpatient [id number] 09/12/2012 07:54:00 09/12/2012 23: 59:59 CLS Outpatient [id number] 08/07/2012 14:12:00 08/07/2012 23: 59:59 CLS Outpatient [id number] 06/20/2012 10:40:00 06/20/2012 23: 59:59 CLS Outpatient [id number] 05/22/2012 14:39:00 05/22/2012 23: 59:59 CLS Outpatient JEFF NEWBY DO [id number] 03/21/2013 11:11:00 Document Registration [id number] 03/18/2013 17:14:00 Document Registration [id number] 03/14/2013 11:10:00 Document Registration [id number] 02/24/2013 08:45:00 Document Registration [id number] 01/02/2013 14:58:00 Document Registration [id number] 12/27/2012 13:52:00 Document Registration [id number] 12/13/2012 13:46:00 Document Registration [id number] 11/12/2012 14:48:00 Document Registration [id number] 03/08/2017 10:20:00 2016 23:59:59 CLS Outpatient SEBASTIAN SOLIZ MD [facility] RAD EVAL ANATOMY NOT SEEN ON PRIOR SONO [id number] 02/12/2017 11:01:00 2016 23:59:59 CLS Outpatient SEBASTIAN SOLIZ MD [facility] RAD Z3A.21 21 WEEKS GEST OF PREG [id number] 12/01/2016 13:51:00 2016 23:59:59 CLS Outpatient SEBASTIAN SOLIZ MD [facility] RAD Z34.80 [id number] 08/10/2015 05:44:00 2015 13:25:00 DIS Inpatient SEBASTIAN SOLIZ MD [facility] LDRP INDUCTION [id number] 07/29/2015 12:18:00 2015 23:59:59 CLS Outpatient SEBASTIAN SOLIZ MD [facility] RAD GROWTH [id number] 03/23/2015 13:31:00 2014 23:59:59 CLS Outpatient JEFF NEWBY DO [facility] RAD SURVEY [id number] 01/21/2015 13:02:00 2014 23:59:59 CLS Outpatient ROSALINE BRITO APRN [facility] RAD [id number] 04/19/2013 21:21:00 2012 22:13:00 DIS Emergency UNIQUE LOPEZ MD [facility] ER [id number] 05/31/2017 07:00:00 PEN PreadSEBASTIAN Johns MD [id number] 05/28/2017 15:41:00 Document Registration [id number] 01/21/2015 13:02:00 Document Registration [id number] 01/21/2015 13:02:00 Document Registration [id number] 10/29/2011 21:34:00 Document Registration
[2017-05-28] MEDS ORDERED: OXYTOCIN/NORMAL SALINE 500 ML IV SCH (18:51)
[2017-05-28] MEDS ORDERED: WITCH HAZEL(TUCKS) 40 EA JAR TOP PRN (19:00)
[2017-05-28] MEDS ORDERED: BENZOCAINE/MENTHOL (DERMOPLAST) 56 ML CAN TP PRN (19:00)
[2017-05-28] MEDS: DOCUSATE SODIUM 100 MG (COLACE) CAP PO SCH (20:56)
[2017-05-28] MEDS: IBUPROFEN 600 MG (MOTRIN) TAB PO SCH (20:56)
[2017-05-28] MEDS ORDERED: CATHETER FLUSH 10 ML SYR IV SCH ×2 (22:00)
[2017-05-29 00:20] VITALS: BP 99/54
[2017-05-29 03:36] VITALS: BP 99/64
[2017-05-29] MEDS: IBUPROFEN 600 MG (MOTRIN) TAB PO SCH ×4 (03:36→21:55)
[2017-05-29 06:21] LABS: BASOPHILS % (AUTO) 0 % (0-10); EOSINOPHILS # (AUTO) 0.1 10^3/uL (0.0-0.3); EOSINOPHILS % (AUTO) 1 % (0-10); LYMPHOCYTES # (AUTO) 2.5 X 10^3 (1.0-4.0); LYMPHOCYTES % (AUTO) 26 % (12-44); MEAN CORPUSCULAR HGB CONC 31 G/DL (32-36); MEAN CORPUSCULAR VOLUME 75 FL (80-99); MEAN PLATELET VOLUME 10.8 FL (7.4-10.4); MONOCYTES % (AUTO) 10 % (0-12); NEUTROPHILS # (AUTO) 6.1 X 10^3 (1.8-7.8); NEUTROPHILS % (AUTO) 63 % (42-75); RED CELL DISTRIBUTION WIDTH 15.5 % (10.0-14.5)
[2017-05-29 06:23] LABS: MEAN CORPUSCULAR HEMOGLOBIN 24 PG (25-34); PLATELET COUNT 258 10^3/uL (130-400); RED BLOOD COUNT 3.87 10^6/uL (4.35-5.85); WHITE BLOOD COUNT 10.8 10^3/uL (4.3-11.0)
[2017-05-29 08:37] VITALS: BP 110/73
[2017-05-29] MEDS: PRENATAL VITAMIN 1 EA TAB PO SCH (08:40)
[2017-05-29] MEDS: FERROUS SULF 325 MG (IRON) TAB PO SCH (08:40)
[2017-05-29] MEDS: DOCUSATE SODIUM 100 MG (COLACE) CAP PO SCH ×2 (08:40→21:55)
[2017-05-29 12:38] VITALS: BP 120/81
--- NOTE | 2017-05-29 16:07 | Progress Note (SOAP) ---
Subjective Subjective/Events-last exam Afebrile, no acute events. No dizziness, chest pain or leg pain. Minimal bleeding. Denies concerns. Review of Systems Date Seen by Provider: May 29, 2017 Time Seen by Provider: 09:45 Objective Exam Last Set of Vital Signs Vital Signs Date Time Temp Pulse Resp B/P (MAP) Pulse Ox O2 Delivery O2 Flow Rate FiO2 05/29/17 12:38 98.0 72 18 120/81 100 Room Air Capillary Refill : I&O Intake and Output 05/30/17 00:00 Intake Total 500 ml Balance 500 ml Intake IV Total 500 ml General: Alert, No Acute Distress Lungs: Clear to Auscultation, Normal Air Movement Heart: Regular Rate, No Murmurs Abdomen: Normal Bowel Sounds, Other (fundus firm at umbilicus) Psych/Mental Status: Other (flat affect, slow to answer questions) Results/Procedures Lab Laboratory Tests 05/29/17 05:22: White Blood Count 10.8, Red Blood Count 3.87L, Hemoglobin 9.1L, Hematocrit 26L, Mean Corpuscular Volume 75L, Mean Corpuscular Hemoglobin 24L, Mean Corpuscular Hemoglobin Concent 31L, Red Cell Distribution Width 15.5H, Platelet Count 258, Mean Platelet Volume 10.8H, Neutrophils (%) (Auto) 63, Lymphocytes (%) (Auto) 26 , Monocytes (%) (Auto) 10, Eosinophils (%) (Auto) 1, Basophils (%) (Auto) 0, Neutrophils # (Auto) 6.1, Lymphocytes # (Auto) 2.5, Monocytes # (Auto) 1.0, Eosinophils # (Auto) 0.1, Basophils # (Auto) 0.0 Assessment/Plan Assessment/Plan Admission Dx Spontaneous onset of labor at 39 weeks gestation Depression Plan s/p at 39 weeks- routine care Depression- not taking sertraline regularly, will consult social work due to concerns for home safety in past Clinical Quality Measures DVT/VTE Risk/Contraindication: Risk Factor Score Per Nursin RFS Level Per Nursing on Admit: 1=Low/No VTE PPX SEBASTIAN SOLIZ MD May 29, 2017 4:07 pm
[2017-05-29 19:45] VITALS: BP 117/61
[2017-05-29 21:55] VITALS: BP 106/67
[2017-05-30 05:12] VITALS: BP 115/78
[2017-05-30] MEDS: IBUPROFEN 600 MG (MOTRIN) TAB PO SCH ×3 (05:12→18:22)
[2017-05-30] MEDS ORDERED: FERR-74 PO (09:13)
[2017-05-30] MEDS ORDERED: IBUP-1773 PO (09:13)
--- NOTE | 2017-05-30 09:15 | Discharge Instructions ---
Discharge Inst-Women's Serv Depart Medications New, Converted or Re-Newed RX: Transmitted to Pharmacy New Medications: Ferrous Sulfate (Ferrous Sulfate) 325 Mg Tablet 325 MG PO BID for 30 Days, #60 TAB 0 Refills Continued Medications: Ibuprofen (Ibuprofen) 600 Mg Tablet 600 MG PO Q6H PRN for PAIN, #60 TAB 0 Refills (This prescription has been renewed) Vit/Iron Fumarate/FA ( Vitamin Tablet) 1 Each Tablet 1 EACH PO DAILY, TAB Sertraline HCl (Zoloft) 50 Mg Tablet 50 MG PO DAILY, TAB Discontinued Medications: Hydrocodone/Acetaminophen (Hydrocodon -Acetaminophen 5-325) 1 Each Tablet 1 TAB PO Q4H PRN for PAIN, #30 TAB 0 Refills Follow Up/Instructions Goal/Follow Up: Follow up with Dr. Mullins for visit in 6 weeks. Activity Activity: Activity as Tolerated (avoid strenuous activity x 6 weeks) Driving Instructions: You May Drive Nothing Inside Vagina: No Douching, No [place], No Tampons Diet Discharge Diet: No Restrictions Symptoms to Report to : Bleeding Excessive, Fever Over 101 Degrees F, Pain/ Pressure in Chest, Vaginal Bleeding Increase, Cramps in Feet or Legs, Vaginal Discharge Foul, Shortness of Breath For Any Problems or Questions: Contact Your Physician Copies To 1: SEBASTIAN MULLINS MD, BETHANY N MD May 30, 2017 9:15 am
--- NOTE | 2017-05-30 09:16 | Discharge Summary ---
Diagnosis/Chief Complaint Date of Admission May 28, 2017 at 2:57 pm Date of Discharge May 30, 2017 Admission Diagnosis Admission Diagnosis TIUP at 39 weeks Spontaneous onset of labor Depression Anemia of Discharge Diagnosis s/p spontaneous vaginal delivery- no lacerations, uncomplicated course Depression- intermittently takes sertraline, social work consulted, she declines any assistance and denies any needs at this time Asymptomatic anemia- iron sulfate BID Chief Complaint/HPI Chief Complaint/HPI 31 yo G3 now P3 presented to L&D with contractions, found to be 8+ cm dilated with bulging bag. Discharge Summary-Simple/Stand Procedures Spontaneous vaginal delivery Discharge Physical Examination Allergies: Coded Allergies: No Known Drug Allergies (Unverified , 10/29/11) Vitals & I&Os Vital Sign - Last 12Hours Date Time Temp Pulse Resp B/P (MAP) Pulse Ox O2 Delivery O2 Flow Rate FiO2 05/30/17 05:12 97.1 101 18 115/78 99 Room Air General Appearance: Alert, No Acute Distress Respiratory: Clear to Auscultation, Normal Air Movement Cardiovascular: Regular Rate, No Murmurs Neuro: Normal Gait Psych/Mental Status: Other (flat affect, slow speech) Hospital Course See final discharge diagnosis. Labs Laboratory Tests Test 05/29/17 05:22 Range/Units White Blood Count 10.8 4.3-11.0 10^3/uL Red Blood Count 3.87 L 4.35-5.85 10^6/uL Hemoglobin 9.1 L 11.5-16.0 G/DL Hematocrit 26 L 35-52 % Mean Corpuscular Volume 75 L 80-99 FL Mean Corpuscular Hemoglobin 24 L 25-34 PG Mean Corpuscular Hemoglobin Concent 31 L 32-36 G/DL Red Cell Distribution Width 15.5 H 10.0-14.5 % Platelet Count 258 130-400 10^3/uL Mean Platelet Volume 10.8 H 7.4-10.4 FL Neutrophils (%) (Auto) 63 42-75 % Lymphocytes (%) (Auto) 26 12-44 % Monocytes (%) (Auto) 10 0-12 % Eosinophils (%) (Auto) 1 0-10 % Basophils (%) (Auto) 0 0-10 % Neutrophils # (Auto) 6.1 1.8-7.8 X 10^3 Lymphocytes # (Auto) 2.5 1.0-4.0 X 10^3 Monocytes # (Auto) 1.0 0.0-1.0 X 10^3 Eosinophils # (Auto) 0.1 0.0-0.3 10^3/uL Basophils # (Auto) 0.0 0.0-0.1 10^3/uL Discharge Instructions to patient/family Please see electronic discharge instructions given to patient. Discharge Medications Reviewed and agree with Discharge Medication list on patient's Discharge Instruction sheet Clinical Quality Measures DVT/VTE Risk/Contraindication: Risk Factor Score Per Nursin RFS Level Per Nursing on Admit: 1=Low/No VTE PPX Copy Copies To 1: SEBASTIAN SOLIZ MD, BETHANY N MD May 30, 2017 9:16 am
[2017-05-30 09:45] VITALS: BP 112/76
[2017-05-30] MEDS: FERROUS SULF 325 MG (IRON) TAB PO SCH (10:07)
[2017-05-30] MEDS: PRENATAL VITAMIN 1 EA TAB PO SCH (10:07)
[2017-05-30] MEDS: DOCUSATE SODIUM 100 MG (COLACE) CAP PO SCH (10:07)
[2017-05-30 13:15] VITALS: BP 120/71
[2017-05-30 18:20] VITALS: BP 115/71
[2017-05-30 18:30] VITALS: BP 115/71
== END 2017-05-30 18:30 | disposition home or self-care (01) | DRG 775 ==
LOC: WSo 14:07 → LDRP 14:57
PROVIDERS: ADMIT Family Medicine; ATTEND Family Medicine
PROC: 10E0XZZ Delivery of Products of Conception, External Approach (ICD-10-PCS; principal; 2017-05-28)
DX: O99.02 Anemia complicating childbirth (principal); D64.9 Anemia, unspecified; O99.344 Other mental disorders complicating childbirth; F32.9 Major depressive disorder, single episode, unspecified; Z37.0 Single live birth; Z3A.39 39 weeks gestation of pregnancy
CPT/HCPCS: 36415; 85025; 86850; 86900; 86901; 99212

== ENCOUNTER 2020-05-23 22:45 | Emergency (ER) | payer OTHER, MEDICAID ==
[~2020-05-23] VITALS: Ht 160 cm; Wt 68.0 kg
[~2020-05-23 22:45] MED LIST changes: +ACHD5005 PO; +FERR325T18 PO; -HYDR-3812 PO
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
[2020-05-24 00:27] VITALS: BP 0/0
== END 2020-05-24 00:26 | disposition home or self-care (01) ==
LOC: EDUNIT# 22:45 → ER 22:47
DX: S01.511A Laceration without foreign body of lip, initial encounter (principal); F41.9 Anxiety disorder, unspecified; F32.9 Major depressive disorder, single episode, unspecified; Z80.0 Family history of malignant neoplasm of digestive organs; Z82.49 Family history of ischemic heart disease and other diseases of the circulatory system; W50.0XXA Accidental hit or strike by another person, initial encounter
CPT/HCPCS: 99282

== ENCOUNTER 2020-12-16 05:42 | Outpatient (CLI) | payer OTHER, MEDICAID ==
[~2020-12-16] VITALS: Ht 160 cm; Wt 67.6 kg
== END 2020-12-16 14:00 | disposition home or self-care (01) ==
LOC: PREOP 05:42
PROVIDERS: ATTEND Surgery
DX: Z01.818 Encounter for other preprocedural examination (principal)

== ENCOUNTER 2020-12-23 06:27 | Day surgery (SDC) | payer OTHER, MEDICAID ==
[2020-12-23] VITALS (8 sets, daily range): BP systolic 104–123; BP diastolic 60–75
[~2020-12-23] VITALS: Ht 160 cm; Wt 67.6 kg
[2020-12-23] MEDS ORDERED: LACTATED RINGERS 1,000 ML IV PRN (07:15)
[2020-12-23] MEDS ORDERED: ceFAZolin INJECTION 1,000 MG in WATER (STERILE) FOR INJECTION 10 ML IV ONE (07:15)
[2020-12-23] MEDS ORDERED: LIDOCAINE/EPI 1%-1:100,000 (XYLOCAINE) 20ML ONE (07:18)
[2020-12-23] MEDS ORDERED: proPOfol 200 MG/20 ML (DIPRIVAN) VIAL IV ONE (07:19)
[2020-12-23] MEDS ORDERED: ROCURONIUM 10 MG/ML 5 ML SYRINGE IV ONE (07:19)
[2020-12-23] MEDS ORDERED: GLYCOPYRROLATE 0.2 MG/ML (ROBINUL) 2 ML VIAL ONE (07:19)
[2020-12-23] MEDS ORDERED: ONDANSETRON 4 MG/2 ML (SDV) Z0FRAN ONE (07:19)
[2020-12-23] MEDS ORDERED: LIDOCAINE PF 2% 5 ML (XYLOCAINE) VIAL ONE (07:19)
[2020-12-23] MEDS ORDERED: NEOSTIGMINE 3 MG/3 ML VIAL ONE (07:19)
[2020-12-23] MEDS ORDERED: SEVOFLURANE (ULTANE) 15 ML INHAL SOLN ONE (07:19)
[2020-12-23] MEDS ORDERED: MIDAZOLAM 2 MG/2 ML (VERSED) VIAL ONE (07:19)
[2020-12-23] MEDS ORDERED: fentaNYL INJ 100 MCG/2 ML AMP ONE (07:19)
--- NOTE | 2020-12-23 08:44 | Progress Note-Pre Operative ---
Pre-Operative Progress Note H&P Reviewed The H&P was reviewed, patient examined and no changes noted. Date Seen by Provider: Dec 23, 2020 Time Seen by Provider: 07:45 Date H&P Reviewed: Dec 23, 2020 Time H&P Reviewed: 07:45 Pre-Operative Diagnosis: left back mass TALIB SALINAS DO Dec 23, 2020 08:44
[2020-12-23] MEDS ORDERED: ONDANSETRON 4 MG/2 ML (SDV) Z0FRAN IVP PRN (08:45)
[2020-12-23] MEDS ORDERED: morphine INJ 10 MG/ML 1ML (SYR OR VIAL) IVP ONE (08:45)
--- NOTE | 2020-12-23 09:11 | Discharge Inst-Simple/Standard ---
Discharge Inst-Standard Patient Instructions/Follow Up Plan of Care/Instructions/FU: 12-14 days Radah Activity as Tolerated: No Discharge Diet: Regular Diet TALIB SALINAS DO Dec 23, 2020 09:11
--- NOTE | 2020-12-23 14:41 | OPERATIVE REPORT ---
DATE OF SERVICE: 12/23/2020 PREOPERATIVE DIAGNOSIS: Left back mass. POSTOPERATIVE DIAGNOSIS: Left back mass. PROCEDURE: Excision of left back mass, 4 x 3 x 3 cm. SURGEON: Talib Garcia DO ANESTHESIA: General. ESTIMATED BLOOD LOSS: Minimal. COMPLICATIONS: None. INDICATIONS: The patient is a 35-year-old female with a left lower back mass. She states she has had it previously excised in its returned. There was a scar as well. She understands risks and benefits of procedure and wished to proceed with procedure. Consent was signed in the chart. DESCRIPTION OF PROCEDURE: The patient was taken to the operating suite. She was placed on the right lateral recumbent position. Timeout was performed. Local anesthetic was infiltrated around the mass. A 15 blade scalpel was used to make an elliptical incisions around scar and mass. Cautery was then used to go through the subcutaneous tissues around the mass. The skin portion on the lower portion had to be extended and continued dissection was taken around the mass through the skin and subcutaneous tissue. Once the overall size of the mass removed, it was 4 x 3 x 3 cm skin and subcutaneous tissue was removed. The wound was then irrigated with copious amounts of irrigation and suctioned. The skin was then closed using a 2-0 Prolene in a vertical mattress fashion. The patient tolerated procedure well without any complications. She was taken to recovery room in stable condition. Job ID: [id number] DocumentID: [id number] Dictated Date: 12/23/2020 12:39:37 Developer Architect Date: 12/23/2020 14:40:42 Dictated By: TALIB GARCIA DO MTDD
--- NOTE | 2020-12-24 12:41 | Anesthesia-General Post-Op ---
General Patient Condition Mental Status/LOC: Same as Preop Cardiovascular: Satisfactory Nausea/Vomiting: Absent Respiratory: Satisfactory Pain: Controlled Complications: Absent Post Op Complications Complications None Follow Up Care/Instructions Patient Instructions None needed. Anesthesia/Patient Condition Patient Condition Post-dated progress note: Patient was seen yesterday after the procedure and she was doing well, no complaints, stable vital signs, no apparent adverse anesthesia problems. FAM BARBA DO Dec 24, 2020 12:41
== END 2020-12-23 10:45 | disposition home or self-care (01) ==
LOC: SDC 06:27
PROVIDERS: ATTEND Surgery
DX: L72.0 Epidermal cyst (principal); F32.9 Major depressive disorder, single episode, unspecified; Z83.3 Family history of diabetes mellitus; Z82.49 Family history of ischemic heart disease and other diseases of the circulatory system
CPT/HCPCS: 84703; 87081